=== PATIENT | female | born 1975 | race Caucasian/White ===

== ENCOUNTER 2019-06-10 18:13 | Emergency (ER) | payer OTHER ==
[2019-06-10] MEDS ORDERED: TORAdol 30 mg Injection IV ONE (18:41)
[2019-06-10] MEDS ORDERED: Pepcid 20 MG VIAL IV ONE ×2 (18:41→18:53)
[2019-06-10] MEDS ORDERED: Sodium Chloride 0.9% 1000 ML 1,000 ML IV SCH (18:45)
--- NOTE | 2019-06-10 18:47 | ERPHSYRPT ---
- History of Present Illness Historian: patient Exam Limitations: no limitations Patient Subjective Stated Complaint: pt here fo pain to right side of abd off and on for 2 weeks, but today has been consant, Triage Nursing Assessment: pt alert, resp easy, skin w/d/p. abd soft, no edema Timing/Duration: today Activities at Onset: none Quality: cramping, sharpness Abdominal Pain Onset Location: RUQ Pain Radiation: no radiation Severity of Pain-Max: severe Severity of Pain-Current: moderate Modifying Factors: Improves With: nothing Associated Symptoms: denies symptoms Previous symptoms: same symptoms as today Hx Tetanus, Diphtheria Vaccination/Date Given: No Hx Influenza Vaccination/Date Given: No Hx Pneumococcal Vaccination/Date Given: No Immunizations Up to Date: Yes <NAPOLEON CUI - Last Filed: 06/10/19 19:02> <IVON JETT - Last Filed: 06/10/19 23:28> - History of Present Illness Time Seen by Provider: 06/10/19 18:44 Physician History: Pt has been c/o RUQ abdominal pain for weeks, more severe since this morning, denies nausea, vomiting, diarrhea, urinary complaints, no radiating pain, fever , chills, chest pain, SOB, other complaints. She underwent cholecystectomy 12 years ago. (NAPOLEON CUI) Allergies/Adverse Reactions: cimetidine [From Tagamet] Adverse Reaction (Intermediate, Verified 06/10/19 18: 30) Vomiting Home Medications: Clonazepam 0.5 mg [Klonopin 0.5 MG] 0.5 mg PO UD 03/26/15 [History] Paroxetine HCl [Paxil] 30 mg PO DAILY 03/26/15 [History] - Review of Systems Constitutional: No Symptoms Ears, Nose, & Throat: No Symptoms Respiratory: No Symptoms Cardiac: No Symptoms Abdominal/Gastrointestinal: Abdominal Pain Genitourinary Symptoms: No Symptoms Musculoskeletal: No Symptoms Skin: No Symptoms Neurological: No Symptoms All Other Systems: Reviewed and Negative <NAPOLEON CUI - Last Filed: 06/10/19 19:02> - Past Medical History Neurological History: No Pertinent History ENT History: No Pertinent History Cardiac History: No Pertinent History Respiratory History: No Pertinent History Endocrine Medical History: No Pertinent History Musculoskeletal History: No Pertinent History GI Medical History: Gallbladder Disease History: No Pertinent History Psycho-Social History: Anxiety Female Reproductive Disorders: Endometriosis, Menstrual Problems - Past Surgical History Past Surgical History: Yes Neuro Surgical History: No Pertinent History Cardiac: No Pertinent History Respiratory: No Pertinent History Gastrointestinal: Cholecystectomy Genitourinary: No Pertinent History Musculoskeletal: No Pertinent History Female Surgical History: Section, Other Other Surgical History: ablasion - Social History Smoking Status: Former smoker How long have you smoked: 15 Exposure to second hand smoke: No Drug Use: none Patient Lives Alone: No - Female History Hx Last Menstrual Period: ablasion Hx Now: No <NAPOLEON CUI Filed: 06/10/19 19:02> - Physical Exam General Appearance: no apparent distress Eye Exam: eyes nml inspection Ears, Nose, Throat Exam: normal ENT inspection, moist mucous membranes Neck Exam: normal inspection, non-tender, supple, No JVD Respiratory Exam: normal breath sounds, lungs clear, airway intact, No chest tenderness Cardiovascular Exam: regular rate/rhythm, normal heart sounds, normal peripheral pulses, No murmur Gastrointestinal/Abdomen Exam: soft, normal bowel sounds, tenderness (RUQ, mod. severe), No distention, No mass, No guarding, No ecchymosis, No rebound Back Exam: normal inspection, No CVA tenderness Extremity Exam: normal inspection, No calf tenderness, No pedal edema Neurologic Exam: alert, oriented x 3, cooperative, normal mood/affect Skin Exam: normal color, warm, dry, No rash, No jaundice, No cyanosis, No diaphoresis Lymphatic Exam: No adenopathy SpO2 Interpretation: normal SpO2: 98 O2 Delivery: Room Air <NAPOLEON CUI - Filed: 06/10/19 19:02> - Nursing Vital Signs Nursing Vital Signs: Initial Vital Signs Temperature 97.8 F 06/10/19 18:25 Pulse Rate 82 06/10/19 18:25 Respiratory Rate 16 06/10/19 18:25 Blood Pressure 133/72 06/10/19 18:25 O2 Sat by Pulse Oximetry 98 06/10/19 18:25 Pain Scale Pain Intensity 2 - Course Nursing assessment & vital signs reviewed: Yes EKG Interpreted by Me: RATE (71/min), NORMAL AXIS, NORMAL INTERVALS, NORMAL QRS , Non-specific ST Changes <NAPOLEON CUI Last Filed: 06/10/19 19:02> - Radiology Exams Chest X-ray Interpretation: Interpreted by me, Negative (No acute changes) - CT Exams Abdomen/Pelvis CT Interpretation: Negative <IVON JETT - Last Filed: 06/10/19 23:28> Ordered Tests: Active Orders 24 hr Category Date Time Status EKG-ER Only STAT Care 06/10/19 18:41 Active IV Insertion STAT Care 06/10/19 18:41 Active ABDOMEN AND PELVIS W CONTRAST [CT] Stat Exams 06/10/19 18:42 Taken CHEST 1 VIEW (PORTABLE) Stat Exams 06/10/19 18:42 Taken AMYLASE Stat Lab 06/10/19 18:25 Completed CBC W DIFF Stat Lab 06/10/19 18:25 Completed CMP Stat Lab 06/10/19 18:25 Completed LIPASE Stat Lab 06/10/19 18:25 Completed TROPONIN Q3H Lab 06/10/19 18:25 Completed Medication Summary Discontinued Medications Generic Name Dose Route Start Last Admin Trade Name Freq PRN Reason Stop Dose Admin Famotidine 20 mg 06/10/19 18:41 06/10/19 18:58 Pepcid 20 Mg Vial IV 06/10/19 18:42 20 mg STAT ONE Administration Famotidine Confirm 06/10/19 18:53 Pepcid 20 Mg Vial Administered 06/10/19 18:54 Dose 20 mg IV .STK-MED ONE Sodium Chloride 1,000 mls @ 100 mls/hr 06/10/19 18:45 06/10/19 18:58 Sodium Chloride 0.9% 1000 Ml IV 07/10/19 18:44 100 mls/hr .Q10H VINICIO Administration Sodium Chloride Confirm 06/10/19 18:53 Sodium Chloride 0.9% 1000 Ml Administered 06/10/19 18:54 Dose 1,000 mls @ ud .ROUTE .STK-MED ONE Ketorolac Tromethamine 30 mg 06/10/19 18:41 06/10/19 18:58 Toradol 30 Mg Injection IV 06/10/19 18:42 30 mg STAT ONE Administration Ketorolac Tromethamine Confirm 06/10/19 18:53 Toradol 30 Mg Injection Administered 06/10/19 18:54 Dose 30 mg .ROUTE .STK-MED ONE Lab/Rad Data: Laboratory Result Diagrams 06/10/19 18:25 06/10/19 18:25 Laboratory Results 06/10/19 06/10/19 06/10/19 Range/Units 18:25 18:25 18:25 WBC 7.7 (4.0-10.5) K/mm3 RBC 4.49 (4.1-5.4) M/mm3 Hgb 13.8 (12.0-16.0) gm/dl Hct 39.8 (35-47) % MCV 88.6 (78-100) fl MCH 30.7 (26-32) pg MCHC 34.7 (32-36) g/dl RDW 12.4 (11.5-14.0) % Plt Count 258 (150-450) K/mm3 MPV 9.4 (6-9.5) fl Gran % 56.6 (36.0-66.0) % Eos # (Auto) 0.15 (0-0.5) Absolute Lymphs (auto) 2.53 (1.0-4.6) Absolute Monos (auto) 0.63 (0.0-1.3) Lymphocytes % 32.9 (24.0-44.0) % Monocytes % 8.2 (0.0-12.0) % Eosinophils % 1.9 (0.00-5.0) % Basophils % 0.4 (0.0-0.4) % Absolute Granulocytes 4.36 (1.4-6.9) Basophils # 0.03 (0-0.4) Sodium 140 (137-145) mmol/L Potassium 3.9 (3.5-5.1) mmol/L Chloride 104 (98-107) mmol/L Carbon Dioxide 27 (22-30) mmol/L Anion Gap 12.4 (5-15) MEQ/L BUN 13 (7-17) mg/dL Creatinine 0.59 (0.52-1.04) mg/dL Estimated GFR > 60.0 ML/MIN Glucose 91 (74-106) mg/dL Calcium 10.2 (8.4-10.2) mg/dL Total Bilirubin 0.50 (0.2-1.3) mg/dL AST 41 H (14-36) U/L ALT 64 H (0-35) U/L Alkaline Phosphatase 85 (38-126) U/L Troponin I < 0.012 (0.000-0.034) ng/mL Serum Total Protein 7.8 (6.3-8.2) g/dL Albumin 4.5 (3.5-5.0) g/dL Amylase 70 (30-110) U/L Lipase 215 (23-300) U/L <NAPOLEON CUI - Last Filed: 06/10/19 19:02> - Progress Progress: improved, re-examined Counseled pt/family regarding: lab results, need for follow-up, rad results <IVON JETT - Last Filed: 06/10/19 23:28> - Progress Progress Note: 06/10/19 19:02 Case was discussed with Dr Jett, he will follow up on her results., (NAPOLEON CUI) <NAPOLEON CUI - Last Filed: 06/10/19 19:02> - Departure Departure Disposition: Home Critical Care Time: No <IVON JETT - Last Filed: 06/10/19 23:28> - Departure Clinical Impression: Abdominal pain Qualifiers: Abdominal location: right upper quadrant Qualified Code(s): R10.11 - Right upper quadrant pain Condition: Stable Referrals: MARAL ARCE [Primary Care Provider] - Instructions: Acute Abdomen (Belly Pain), Adult (DC) Additional Instructions: Follow up with primary care; call office in the morning and let them know of your ER visit and how you are doing. Return to ER meanwhile if vomiting more than 3 times in an hour or running a fever 101.5 or above.
[2019-06-10] MEDS ORDERED: TORAdol 30 mg Injection ONE (18:53)
[2019-06-10] MEDS ORDERED: Sodium Chloride 0.9% 1000 ML 1,000 ML ONE (18:53)
[2019-06-10 18:55] LABS: BASOPHIL % 0.4 % (0.0-0.4); Basophil (Absolute #) 0.03 (0-0.4); Eosinophil % 1.9 % (0.00-5.0); Eosinophil (Absolute #) 0.15 (0-0.5); Granulocyte Absolute (ANC) 4.36 (1.4-6.9); Granulocytes % 56.6 % (36.0-66.0); Hematocrit 39.8 % (35-47); Hemoglobin 13.8 gm/dl (12.0-16.0); Lymphocyte (Absolute #) 2.53 (1.0-4.6); Lymphocytes % 32.9 % (24.0-44.0); Mean Cell Volume 88.6 fl (78-100); Mean Corpuscular Hemoglobin 30.7 pg (26-32); Mean Corpuscular Hgb Concent. 34.7 g/dl (32-36); Mean Platelet Volume 9.4 fl (6-9.5); Monocyte (Absolute #) 0.63 (0.0-1.3); Monocytes % 8.2 % (0.0-12.0); Platelet Count 258 K/mm3 (150-450); Red Blood Count 4.49 M/mm3 (4.1-5.4); Red Cell Distribution Width 12.4 % (11.5-14.0); White Blood Count 7.7 K/mm3 (4.0-10.5)
[2019-06-10 19:06] VITALS: PULSE 76
[2019-06-10 19:08] LABS: ALBUMIN 4.5 g/dL (3.5-5.0); ALKALINE PHOSPHATASE 85 U/L (38-126); AMYLASE 70 U/L (30-110); ANION GAP 12.4 MEQ/L (5-15); BLOOD UREA NITROGEN 13 mg/dL (7-17); CHLORIDE 104 mmol/L (98-107); Calcium 10.2 mg/dL (8.4-10.2); Carbon Dioxide 27 mmol/L (22-30); Creatinine 1 0.59 mg/dL (0.52-1.04); Glucose 91 mg/dL (74-106); LIPASE 215 U/L (23-300); Potassium 3.9 mmol/L (3.5-5.1); SGOT/AST 41 U/L (14-36); SGPT/ALT 64 U/L (0-35); SODIUM 140 mmol/L (137-145); Total Protein 7.8 g/dL (6.3-8.2)
[2019-06-10 21:01] VITALS: BP 148/79; O2SAT 98
--- NOTE | 2019-06-11 08:57 | XRAY ---
Indication: Right upper quadrant abdomen pain. Comparison: None Portable chest demonstrates normal heart, lungs, and bony thorax.
--- NOTE | 2019-06-11 08:57 | XRAY ---
Indication: Right upper quadrant pain for weeks. Multiple contiguous axial images obtained through the abdomen and pelvis using 80 cc Isovue 370 contrast only. Comparison: January 06, 2006. Lung bases are clear. Heart is not enlarged. Noncontrasted stomach and bowel loops appear nonobstructed. Normal appendix. Mild sigmoid diverticulosis without diverticulitis. Interval cholecystectomy. Diffuse fatty liver. No free fluid/air. Remaining liver, pancreas, spleen, adrenal glands, kidneys, ureters, bladder, uterus, and aorta appear unremarkable. No pathologic retroperitoneal lymphadenopathy. Osseous structures intact. Impression: 1. Diffuse fatty liver and sigmoid diverticulosis. 2. Remaining CT abdomen/pelvis with contrast exam is negative. Comment: Preliminary interpretation was made by [facility]. No discrepancy. CT DI 23.68
== END 2019-06-10 21:06 | disposition home or self-care (01) ==
LOC: ED 18:13
DX: R10.11 Right upper quadrant pain (principal)
CPT/HCPCS: 36000; 36415; 71045; 74177; 80053; 82150; 83690; 84484; 85025; 93005; 96360; 96361; 96374; 96375; 99284; J1885

== ENCOUNTER 2019-10-23 22:01 | Emergency (ER) | payer OTHER ==
--- NOTE | 2019-10-23 23:45 | ERPHSYRPT ---
- History of Present Illness Time Seen by Provider: 10/23/19 22:27 Source: patient, family Exam Limitations: no limitations Patient Subjective Stated Complaint: pt states that he was walking down the stairs in her home and lost her footing, fell on her r arm. Triage Nursing Assessment: pt rates painin arm as 5/10, states she cannot straighten her arm Physician History: S/P FALL GOING UP THE STEPS AT HER HOME NEG: LOC POS: RT ELBOW PAIN/ABRASION Occurred: just prior to arrival Method of Injury: fell Quality: constant, tightness Severity of Pain-Max: mild Severity of Pain-Current: mild Extremities Pain Location: elbow: right Modifying Factors: Improves With: movement Associated Symptoms: none Allergies/Adverse Reactions: cimetidine [From [employer]] Adverse Reaction (Intermediate, Verified 10/23/19 22: 19) Vomiting Home Medications: Clonazepam 0.5 mg [Klonopin 0.5 MG] 0.5 mg PO UD 03/26/15 [History] Paroxetine HCl [Paxil] 30 mg PO DAILY 03/26/15 [History] Hx Tetanus, Diphtheria Vaccination/Date Given: No Hx Influenza Vaccination/Date Given: No Hx Pneumococcal Vaccination/Date Given: No - Review of Systems Constitutional: No Symptoms Eyes: No Symptoms Ears, Nose, & Throat: No Symptoms Respiratory: No Symptoms Cardiac: No Symptoms Abdominal/Gastrointestinal: No Symptoms Genitourinary Symptoms: No Symptoms Musculoskeletal: Joint Pain (RT ELBOW) Skin: No Symptoms Neurological: No Symptoms Psychological: No Symptoms Endocrine: No Symptoms Hematologic/Lymphatic: No Symptoms Immunological/Allergic: No Symptoms All Other Systems: Reviewed and Negative - Past Medical History Neurological History: No Pertinent History ENT History: No Pertinent History Cardiac History: No Pertinent History Respiratory History: No Pertinent History Endocrine Medical History: No Pertinent History Musculoskeletal History: No Pertinent History GI Medical History: Gallbladder Disease History: No Pertinent History Psycho-Social History: Anxiety Female Reproductive Disorders: Endometriosis, Menstrual Problems - Past Surgical History Past Surgical History: Yes Neuro Surgical History: No Pertinent History Cardiac: No Pertinent History Respiratory: No Pertinent History Gastrointestinal: Cholecystectomy Genitourinary: No Pertinent History Musculoskeletal: No Pertinent History Female Surgical History: Section, Other Other Surgical History: ablasion - Social History Smoking Status: Former smoker How long have you smoked: 15 Exposure to second hand smoke: No Drug Use: none Patient Lives Alone: No - Female History Hx Last Menstrual Period: ablasion 4 years ago Hx Now: No - Nursing Vital Signs Nursing Vital Signs: Initial Vital Signs Temperature 98.1 F 10/23/19 22:05 Pain Scale Pain Intensity 5 - Physical Exam General Appearance: mild distress Eyes, Ears, Nose, Throat Exam: normal ENT inspection, TMs normal, pharynx normal , moist mucous membranes Neck Exam: normal inspection, non-tender, supple, full range of motion, No meningismus, No lymphadenopathy (R) Cardiovascular/Respiratory Exam: chest non-tender, normal breath sounds, regular rate/rhythm, heart sounds normal, no ecchymosis, no JVD, no M/R/G, no respiratory distress Abdominal Exam: non-tender, soft, no organomegaly, no hernia Back Exam: normal inspection, normal range of motion, CVA tenderness, No vertebral tenderness, No rash, No decreased range of motion Shoulder Exam: normal inspection Elbow/Forearm Exam: limited ROM, pain, soft tissue tenderness, swelling (MILD ) Wrist Exam: normal inspection, non-tender, no evidence of injury, normal ROM, No abrasions Hand Exam: normal inspection, non-tender, no evidence of injury, normal ROM Neuro/Tendon Exam: normal sensation, normal motor functions, normal tendon functions, responds to pain Mental Status Exam: alert, oriented x 3, cooperative Skin Exam: abrasion (RT ELBOW REGION--SUPERFGICIAL ) SpO2: 96 O2 Delivery: Room Air - Course Nursing assessment & vital signs reviewed: Yes Ordered Tests: Active Orders 24 hr Category Date Time Status ELBOW (MINIMUM 3 VIEWS) Stat Exams 10/23/19 23:09 Taken - Progress Progress: improved Progress Note: 10/23/19 23:51 FOLLOW UP WITH PCP NEXT WEK RETURN TO ER IF ANY CHANGES IN SYMPTOMS Counseled pt/family regarding: rad results - Departure Departure Disposition: Home Clinical Impression: Fall Qualifiers: Encounter type: initial encounter Qualified Code(s): W19.XXXA - Unspecified fall, initial encounter Contusion, elbow, with forearm Qualifiers: Encounter type: initial encounter Laterality: right Qualified Code(s): S50.11XA - Contusion of right forearm, initial encounter Condition: Stable Critical Care Time: No Referrals: MARAL ARCE [Primary Care Provider] - Additional Instructions: FOLLOW UP WITH PCP NEXT WEEK RETURN TO ER IF ANY CHANGES IN SYMPTOMS
[2019-10-23] MEDS ORDERED: TORAdol 30 mg Injection IM ONE (23:54)
[2019-10-24 00:09] VITALS: BP 133/83; PULSE 88; O2SAT 97
--- NOTE | 2019-10-24 10:12 | XRAY ---
Exam: 3 view right elbow series from 10/23/2019. Comparison: None. Indication: Right elbow pain. Findings: AP, oblique, and lateral radiographs of the right elbow were obtained. No acute fracture, dislocation, or joint effusion is seen. There is no elevation of the anterior fat pad or evidence of a posterior fat pad. The radial head and neck appear intact. The right elbow joint space appears unremarkable. No abnormal periarticular soft tissue calcifications are seen. No radiopaque soft tissue foreign body is seen. No other focal bone lesion is seen. Impression: 1. No significant right elbow abnormality detected.
== END 2019-10-24 00:09 | disposition home or self-care (01) ==
LOC: ED 22:01
DX: S50.11XA Contusion of right forearm, initial encounter (principal); M25.521 Pain in right elbow; S50.311A Abrasion of right elbow, initial encounter; W10.9XXA Fall (on) (from) unspecified stairs and steps, initial encounter
CPT/HCPCS: 73080; 99283

== ENCOUNTER 2021-07-16 12:06 | Inpatient (IN) | payer BC, OTHER ==
[2021-07-16] MEDS ORDERED: Sodium Chloride 0.9% 1000 ML 1,000 ML IV STA (12:35)
[2021-07-16] MEDS ORDERED: Hydromorphone 1 mg/ml Injection IV ONE ×2 (12:35→14:37)
[2021-07-16] MEDS ORDERED: Hydromorphone 1 mg/ml Injection ONE ×2 (12:40→14:47)
[2021-07-16] MEDS ORDERED: Sodium Chloride 0.9% 1000 ML 1,000 ML ONE (12:40)
[2021-07-16 12:52] LABS: Absolute Neutrophil Ct (ANC) 14.48 (1.4-6.9); BASOPHIL % 0.1 % (0.0-0.4); Basophil (Absolute #) 0.02 (0-0.4); Eosinophil % 0.1 % (0.00-5.0); Eosinophil (Absolute #) 0.02 (0-0.5); Hematocrit 42.6 % (35-47); Hemoglobin 14.5 gm/dl (12.0-16.0); Lymphocyte (Absolute #) 2.16 (1.0-4.6); Lymphocytes % 11.9 % (24.0-44.0); Mean Cell Volume 88.6 fl (78-100); Mean Corpuscular Hemoglobin 30.1 pg (26-32); Mean Platelet Volume 9.4 fl (7.5-11.0); Monocytes % 7.7 % (0.0-12.0); Neutrophil % 80.2 % (36.0-66.0); Platelet Count 289 K/mm3 (150-450); Red Blood Count 4.81 M/mm3 (4.1-5.4); Red Cell Distribution Width 12.5 % (11.5-14.0); White Blood Count 18.1 K/mm3 (4.0-10.5)
--- NOTE | 2021-07-16 12:55 | ERPHSYRPT ---
- History of Present Illness Time Seen by Provider: 07/16/21 12:25 Historian: patient Exam Limitations: no limitations Patient Subjective Stated Complaint: Pt states that she began having kiko lower abdominal pain since yesterday, unable to get comfortable Triage Nursing Assessment: Pt brought self to the ER, tachycardic, rates pain 8/10, denies flank pain, has had 2 bowel movements this AM with no difficulties, pain meds last night, pulses normal, frequent urination, skin n/w/d Physician History: Patient is a 46-year-old female who presents with a complaint of lower abdominal pain which started yesterday grew much worse through the night. She does have a history of recurrent ovarian cyst and endometriosis which had been much better as far as pain goes since an ablation approximately 7 years ago. This episode started last night the pain is in the lower abdomen and back she does have some chills and sweats but no documented fever she has had some nausea but no fever no vomiting no diarrhea. She has frequency of urination but no urgency no dysuria etc. previous abdominal surgeries include several laparoscopic procedures x2 ablation 7 years ago as mentioned above and cholecystectomy. Timing/Duration: yesterday Activities at Onset: none Quality: cramping, stabbing, throbbing Abdominal Pain Onset Location: suprapubic Pain Radiation: no radiation Severity of Pain-Max: severe Severity of Pain-Current: severe Modifying Factors: Improves With: movement Associated Symptoms: diaphoresis, fever/chills, nausea Previous symptoms: same symptoms as today Allergies/Adverse Reactions: cimetidine [From [facility]] Adverse Reaction (Intermediate, Verified 07/16/21 12:29) Vomiting Home Medications: Clonazepam 0.5 mg [Klonopin 0.5 MG] 0.5 mg PO UD PRN 03/26/15 [History] PARoxetine HCl [Paxil] 30 mg PO DAILY 03/26/15 [History] Metformin HCl 500 mg [Glucophage 500 MG] 500 mg PO BIDWM 07/16/21 [History] Hx Tetanus, Diphtheria Vaccination/Date Given: No Hx Influenza Vaccination/Date Given: No Hx Pneumococcal Vaccination/Date Given: No Travel Risk - International Travel Have you traveled outside of the country in past 3 weeks: No - Coronavirus Screening Are you exhibiting any of the following symptoms?: No Close contact with a COVID-19 positive Pt in past 14-21 Days: No - Vaccine Status Have you recieved a Covid-19 vaccination: No - Review of Systems Constitutional: Chills, Night Sweats, No Fever Eyes: No Symptoms Ears, Nose, & Throat: No Symptoms Respiratory: No Cough, No Dyspnea Cardiac: No Chest Pain, No Edema, No Syncope Abdominal/Gastrointestinal: Abdominal Pain, Nausea, No Vomiting, No Diarrhea Genitourinary Symptoms: No Dysuria Musculoskeletal: No Back Pain, No Neck Pain Skin: No Rash Neurological: No Dizziness, No Focal Weakness, No Sensory Changes Psychological: No Symptoms Endocrine: No Symptoms All Other Systems: Reviewed and Negative - Past Medical History Pertinent Past Medical History: Yes Neurological History: No Pertinent History ENT History: No Pertinent History Cardiac History: No Pertinent History Respiratory History: No Pertinent History Endocrine Medical History: No Pertinent History Musculoskeletal History: No Pertinent History GI Medical History: Gallbladder Disease History: No Pertinent History Psycho-Social History: Anxiety Female Reproductive Disorders: Endometriosis, Menstrual Problems - Past Surgical History Past Surgical History: Yes Neuro Surgical History: No Pertinent History Cardiac: No Pertinent History Respiratory: No Pertinent History Gastrointestinal: Cholecystectomy Genitourinary: No Pertinent History Musculoskeletal: No Pertinent History Female Surgical History: Section, Other Other Surgical History: ablasion - Social History Smoking Status: Former smoker How long have you smoked: 15 Exposure to second hand smoke: No Drug Use: none Patient Lives Alone: No - Female History Hx Now: No (ablasion) - Nursing Vital Signs Nursing Vital Signs: Initial Vital Signs Temperature 98.9 F 07/16/21 12:13 Pulse Rate 106 H 07/16/21 12:13 Blood Pressure 139/89 07/16/21 12:13 O2 Sat by Pulse Oximetry 96 07/16/21 12:13 Pain Scale Pain Intensity 8 - Physical Exam General Appearance: no apparent distress, mild distress, alert Eye Exam: PERRL/EOMI, eyes nml inspection Ears, Nose, Throat Exam: normal ENT inspection, pharynx normal, moist mucous membranes Neck Exam: normal inspection, non-tender, supple, full range of motion Respiratory Exam: normal breath sounds, lungs clear, No respiratory distress Cardiovascular Exam: regular rate/rhythm, normal heart sounds Gastrointestinal/Abdomen Exam: normal bowel sounds, tenderness, guarding, rebound (Tenderness guarding and rebound in the lower quadrants), No mass Pelvic Exam: not done Rectal Exam: deferred Back Exam: normal inspection, normal range of motion, No CVA tenderness, No vertebral tenderness Extremity Exam: normal inspection, normal range of motion, pelvis stable Neurologic Exam: alert, oriented x 3, cooperative, normal mood/affect, nml cerebellar function, sensation nml, No motor deficits Skin Exam: normal color, warm, dry SpO2 Interpretation: normal SpO2: 96 O2 Delivery: Room Air - Course Nursing assessment & vital signs reviewed: Yes - CT Exams Abdomen/Pelvis CT Interpretation: Tele-radiologist Report (Summary of the CT scan was of mild acute diverticulitis at the junction of the descending and sigmoid colon and some small foci of extraluminal air consistent with a contained diverticular perforation.) Ordered Tests: Active Orders 24 hr Category Date Time Status IV Insertion STAT Care 07/16/21 12:35 Active ABDOMEN AND PELVIS W CONTRAST [CT] Stat Exams 07/16/21 12:35 Taken AMYLASE Stat Lab 07/16/21 12:20 Completed CBC W DIFF Stat Lab 07/16/21 12:20 Completed CMP Stat Lab 07/16/21 12:20 Completed LIPASE Stat Lab 07/16/21 12:20 Completed Lactic Acid Stat Lab 07/16/21 12:45 Completed UA W/RFX UR CULTURE Stat Lab 07/16/21 12:39 Completed Medication Summary Generic Name Dose Route Start Last Admin Trade Name Freq PRN Reason Stop Dose Admin Hydromorphone HCl 1 mg 07/16/21 14:37 Hydromorphone 1 Mg/Ml Injection IV 07/16/21 14:38 STAT ONE Ondansetron HCl 4 mg 07/16/21 14:38 Zofran 4 Mg/2 Ml Vial IV 07/16/21 14:39 STAT ONE Discontinued Medications Generic Name Dose Route Start Last Admin Trade Name Freq PRN Reason Stop Dose Admin Hydromorphone HCl 1 mg 07/16/21 12:35 07/16/21 12:41 Hydromorphone 1 Mg/Ml Injection IV 07/16/21 12:36 1 mg STAT ONE Administration Hydromorphone HCl Confirm 07/16/21 12:40 Hydromorphone 1 Mg/Ml Injection Administered 07/16/21 12:41 Dose 1 mg .ROUTE .STK-MED ONE Sodium Chloride 1,000 mls @ 999 mls/hr 07/16/21 12:35 07/16/21 14:00 Sodium Chloride 0.9% 1000 Ml IV 07/16/21 13:35 Infused .Q1H1M STA Infusion Sodium Chloride Confirm 07/16/21 12:40 Sodium Chloride 0.9% 1000 Ml Administered 07/16/21 12:41 Dose 1,000 mls @ ud .ROUTE .STK-MED ONE Lab/Rad Data: Laboratory Result Diagrams 07/16/21 12:20 07/16/21 12:20 Laboratory Results 07/16/21 07/16/21 07/16/21 Range/Units 12:45 12:39 12:20 WBC (4.0-10.5) K/mm3 RBC (4.1-5.4) M/mm3 Hgb (12.0-16.0) gm/dl Hct (35-47) % MCV (78-100) fl MCH (26-32) pg MCHC (32-36) g/dl RDW (11.5-14.0) % Plt Count (150-450) K/mm3 MPV (7.5-11.0) fl Gran % (36.0-66.0) % Eos # (Auto) (0-0.5) Absolute Lymphs (auto) (1.0-4.6) Absolute Monos (auto) (0.0-1.3) Lymphocytes % (24.0-44.0) % Monocytes % (0.0-12.0) % Eosinophils % (0.00-5.0) % Basophils % (0.0-0.4) % Absolute Granulocytes (1.4-6.9) Basophils # (0-0.4) Sodium 135 L (137-145) mmol/L Potassium 4.0 (3.5-5.1) mmol/L Chloride 98 (98-107) mmol/L Carbon Dioxide 25 (22-30) mmol/L Anion Gap 16.3 H (5-15) MEQ/L BUN 9 (7-17) mg/dL Creatinine 0.55 (0.52-1.04) mg/dL Estimated GFR > 60.0 ML/MIN Glucose 160 H (74-106) mg/dL Lactic Acid 1.3 (0.4-2.0) Calcium 9.7 (8.4-10.2) mg/dL Total Bilirubin 0.90 (0.2-1.3) mg/dL AST 29 (14-36) U/L ALT 57 H (0-35) U/L Alkaline Phosphatase 94 (38-126) U/L Serum Total Protein 8.2 (6.3-8.2) g/dL Albumin 4.9 (3.5-5.0) g/dL Amylase 55 (30-110) U/L Lipase 116 (23-300) U/L Urine Color YELLOW (YELLOW) Urine Appearance CLEAR (CLEAR) Urine pH 7.0 (5-6) Ur Specific [place] 1.012 (1.005-1.025) Urine Protein NEGATIVE (Negative) Urine Ketones NEGATIVE (NEGATIVE) Urine Blood NEGATIVE (0-5) Ari/ul Urine Nitrite NEGATIVE (NEGATIVE) Urine Bilirubin NEGATIVE (NEGATIVE) Urine Urobilinogen 2 (0-1) mg/dL Ur Leukocyte Esterase NEGATIVE (NEGATIVE) Urine WBC (Auto) 0-2 (0-5) /HPF Urine RBC (Auto) NONE SEEN (0-2) /HPF U Epithel Cells (Auto) RARE (FEW) /HPF Urine Bacteria (Auto) RARE (NEGATIVE) /HPF Urine Mucus (Auto) SLIGHT (NEGATIVE) /HPF Urine Culture Reflexed NO (NO) Urine Glucose NEGATIVE (NEGATIVE) mg/dL 07/16/21 Range/Units 12:20 WBC 18.1 H (4.0-10.5) K/mm3 RBC 4.81 (4.1-5.4) M/mm3 Hgb 14.5 (12.0-16.0) gm/dl Hct 42.6 (35-47) % MCV 88.6 (78-100) fl MCH 30.1 (26-32) pg MCHC 34.0 (32-36) g/dl RDW 12.5 (11.5-14.0) % Plt Count 289 (150-450) K/mm3 MPV 9.4 (7.5-11.0) fl Gran % 80.2 H (36.0-66.0) % Eos # (Auto) 0.02 (0-0.5) Absolute Lymphs (auto) 2.16 (1.0-4.6) Absolute Monos (auto) 1.40 H (0.0-1.3) Lymphocytes % 11.9 L (24.0-44.0) % Monocytes % 7.7 (0.0-12.0) % Eosinophils % 0.1 (0.00-5.0) % Basophils % 0.1 (0.0-0.4) % Absolute Granulocytes 14.48 H (1.4-6.9) Basophils # 0.02 (0-0.4) Sodium (137-145) mmol/L Potassium (3.5-5.1) mmol/L Chloride (98-107) mmol/L Carbon Dioxide (22-30) mmol/L Anion Gap (5-15) MEQ/L BUN (7-17) mg/dL Creatinine (0.52-1.04) mg/dL Estimated GFR ML/MIN Glucose (74-106) mg/dL Lactic Acid (0.4-2.0) Calcium (8.4-10.2) mg/dL Total Bilirubin (0.2-1.3) mg/dL AST (14-36) U/L ALT (0-35) U/L Alkaline Phosphatase (38-126) U/L Serum Total Protein (6.3-8.2) g/dL Albumin (3.5-5.0) g/dL Amylase (30-110) U/L Lipase (23-300) U/L Urine Color (YELLOW) Urine Appearance (CLEAR) Urine pH (5-6) Ur Specific [place] (1.005-1.025) Urine Protein (Negative) Urine Ketones (NEGATIVE) Urine Blood (0-5) Ari/ul Urine Nitrite (NEGATIVE) Urine Bilirubin (NEGATIVE) Urine Urobilinogen (0-1) mg/dL Ur Leukocyte Esterase (NEGATIVE) Urine WBC (Auto) (0-5) /HPF Urine RBC (Auto) (0-2) /HPF U Epithel Cells (Auto) (FEW) /HPF Urine Bacteria (Auto) (NEGATIVE) /HPF Urine Mucus (Auto) (NEGATIVE) /HPF Urine Culture Reflexed (NO) Urine Glucose (NEGATIVE) mg/dL - Progress Discussed with : Shira Will see patient in: hospital (observation) Counseled pt/family regarding: lab results, diagnosis - Departure Departure Disposition: Observation Clinical Impression: Diverticulitis of colon with perforation Condition: Stable Critical Care Time: No Referrals: MARAL ARCE [Primary Care Provider] -
[2021-07-16 13:01] LABS: ALBUMIN 4.9 g/dL (3.5-5.0); ALKALINE PHOSPHATASE 94 U/L (38-126); AMYLASE 55 U/L (30-110); ANION GAP 16.3 MEQ/L (5-15); BLOOD UREA NITROGEN 9 mg/dL (7-17); CHLORIDE 98 mmol/L (98-107); Calcium 9.7 mg/dL (8.4-10.2); Carbon Dioxide 25 mmol/L (22-30); Creatinine 1 0.55 mg/dL (0.52-1.04); EST GLOMERULAR FILTRATION RATE > 60.0 ML/MIN; Glucose 160 mg/dL (74-106); LIPASE 116 U/L (23-300); SGOT/AST 29 U/L (14-36); SGPT/ALT 57 U/L (0-35); SODIUM 135 mmol/L (137-145); Total Protein 8.2 g/dL (6.3-8.2)
[2021-07-16 13:08] LABS: Appearance CLEAR (CLEAR); Bacteria RARE /HPF (NEGATIVE); Bilirubin NEGATIVE (NEGATIVE); Blood NEGATIVE Ery/ul (0-5); Epithelial Cells RARE /HPF (FEW); Glucose NEGATIVE (NEGATIVE); Ketones NEGATIVE (NEGATIVE); Leukocyte Esterase NEGATIVE (NEGATIVE); Mucus SLIGHT /HPF (NEGATIVE); Nitrite NEGATIVE (NEGATIVE); Protein,Urine Dip NEGATIVE (Negative); Specific Gravity 1.012 (1.005-1.025); Urobilinogen 2 mg/dL (0-1); WBC 0-2 /HPF (0-5)
[2021-07-16 13:11] LABS: RBC NONE SEEN /HPF (0-2)
[2021-07-16] MEDS ORDERED: Zofran 4 MG/2 ML VIAL IV ONE (14:38)
[2021-07-16] MEDS ORDERED: Zosyn 3.375 GM Vial 3.375 GM in Sodium Chloride 100ML MINI-BAG PLUS 100 ML IV ONE (14:43)
[2021-07-16] MEDS ORDERED: FLAGYL 500 MG IVPB 500 MG/100 ML BAG IV STA (14:44)
[2021-07-16] MEDS ORDERED: Zofran 4 MG/2 ML VIAL ONE (14:47)
[2021-07-16] MEDS ORDERED: Zosyn 3.375 GM Vial IV ONE ×2 (14:47→21:24)
[2021-07-16] MEDS ORDERED: Sodium Chloride 100ML MINI-BAG PLUS 100 ML IV ONE ×2 (14:48→21:25)
[2021-07-16] MEDS ORDERED: FLAGYL 500 MG IVPB 500 MG/100 ML BAG IV ONE (14:48)
[2021-07-16] MEDS: Sodium Chloride 0.9% 1000 ML 1,000 ML IV SCH (16:29)
--- NOTE | 2021-07-16 18:24 | XRAY ---
Indication: Abdomen/pelvic pain. Nausea. Multiple contiguous axial images obtained through the abdomen and pelvis using 80 cc Isovue 370 contrast. Comparison: June 10, 2019. Lung bases are again clear. Heart not enlarged. Noncontrasted stomach and bowel loops are nonobstructed. Normal appendix. Mild scattered descending and sigmoid colonic diverticulosis. Mid and proximal sigmoid demonstrates new mild wall thickening with pericolonic stranding favoring diverticulitis. No free fluid/air. Again diffuse fatty liver and cholecystectomy. Remaining liver, pancreas, spleen, adrenal glands, kidneys, ureters, bladder, uterus, and aorta are unremarkable. No pathologic retroperitoneal lymphadenopathy. Osseous structures intact. Impression: 1. New sigmoid diverticulitis. No complications. 2. Again fatty liver. Comment: Preliminary interpretation made by [facility]. No critical discrepancy.
[2021-07-16] MEDS: FLAGYL 500 MG IVPB 500 MG/100 ML BAG IV SCH ×2 (19:40→21:33)
[2021-07-16] MEDS: Zosyn 3.375 GM Vial 3.375 GM in Sodium Chloride 100ML MINI-BAG PLUS 100 ML IV SCH ×2 (19:41→23:00)
[2021-07-16] MEDS: Hydromorphone 1 mg/ml Injection IV PRN (19:52)
[2021-07-17] MEDS ORDERED: Sodium Chloride 100ML MINI-BAG PLUS 100 ML IV ONE (03:34)
[2021-07-17] MEDS ORDERED: Zosyn 3.375 GM Vial IV ONE (03:34)
[2021-07-17] MEDS ORDERED: Sodium Chloride 0.9% 1000 ML 1,000 ML ONE (04:17)
[2021-07-17] MEDS: Sodium Chloride 0.9% 1000 ML 1,000 ML IV SCH ×2 (04:20→18:26)
[2021-07-17] MEDS: FLAGYL 500 MG IVPB 500 MG/100 ML BAG IV SCH ×4 (04:20→23:24)
[2021-07-17] MEDS: Zosyn 3.375 GM Vial 3.375 GM in Sodium Chloride 100ML MINI-BAG PLUS 100 ML IV SCH ×3 (05:52→18:58)
[2021-07-17 06:35] LABS: Absolute Neutrophil Ct (ANC) 9.83 (1.4-6.9); BASOPHIL % 0.2 % (0.0-0.4); Basophil (Absolute #) 0.02 (0-0.4); Eosinophil % 0.1 % (0.00-5.0); Eosinophil (Absolute #) 0.01 (0-0.5); Hematocrit 38.4 % (35-47); Hemoglobin 12.7 gm/dl (12.0-16.0); Lymphocyte (Absolute #) 1.39 (1.0-4.6); Lymphocytes % 11.4 % (24.0-44.0); Mean Cell Volume 91.2 fl (78-100); Mean Corpuscular Hemoglobin 30.2 pg (26-32); Mean Corpuscular Hgb Concent. 33.1 g/dl (32-36); Mean Platelet Volume 9.1 fl (7.5-11.0); Monocyte (Absolute #) 0.93 (0.0-1.3); Monocytes % 7.6 % (0.0-12.0); Neutrophil % 80.7 % (36.0-66.0); Platelet Count 210 K/mm3 (150-450); Red Blood Count 4.21 M/mm3 (4.1-5.4); Red Cell Distribution Width 12.5 % (11.5-14.0); White Blood Count 12.2 K/mm3 (4.0-10.5)
[2021-07-17 06:54] LABS: ANION GAP 11.1 MEQ/L (5-15); BLOOD UREA NITROGEN 7 mg/dL (7-17); CHLORIDE 102 mmol/L (98-107); Calcium 8.8 mg/dL (8.4-10.2); Carbon Dioxide 26 mmol/L (22-30); Creatinine 1 0.59 mg/dL (0.52-1.04); EST GLOMERULAR FILTRATION RATE > 60.0 ML/MIN; Glucose 157 mg/dL (74-106); Potassium 3.8 mmol/L (3.5-5.1); SODIUM 135 mmol/L (137-145)
[2021-07-17] MEDS ORDERED: clonazePAM PO PRN (07:12)
[2021-07-17] MEDS: Hydromorphone 1 mg/ml Injection IV PRN ×3 (08:35→20:11)
[2021-07-17] MEDS: HOLD METFORMIN PRODUCTS FOR 48 HOURS MC SCH ×3 (11:58→23:33)
[2021-07-17] MEDS: Paxil 20 MG PO SCH (11:58)
[2021-07-17] MEDS ORDERED: PAROXETINE HCL 30 MG PO SCH (12:00)
--- NOTE | 2021-07-17 13:19 | PCM.HP ---
History of Present Illness - Chief Complaint Chief Complaint: Diverticulitis with perforation History of Present Illness: is a 46 year old female followed by Brenda Schaeffer NP,presented to ER with severe low abd pain. Has Hx Ovarian cysts/.endometriosis ,improved after ablation(remote). CT abd/pelvis showed ruptured diverticulitis that is contained .Dr Álvaro Topete consulted and is following. She is tolerating clear liquid diet and pain level down to 1-2 from 8-10 in ER on current pain meds.She was started on Zosyn and Flagyl in ER - Review of Systems Constitutional: Chills, Night Sweats Eyes: No Symptoms Ears, Nose, & Throat: No Symptoms Respiratory: No Symptoms Abdominal/Gastrointestinal: Abdominal Pain, Nausea Genitourinary Symptoms: Frequency Musculoskeletal: No Symptoms Skin: No Symptoms Psychological: No Symptoms Endocrine: No Symptoms Hematologic/Lymphatic: No Symptoms Medications & Allergies Home Medications: Home Medication List Clonazepam 0.5 mg [Klonopin 0.5 MG] 0.5 mg PO DAILY PRN PRN 03/26/15 [History Confirmed 07/16/21] PARoxetine HCl [Paxil] 30 mg PO LUNCH 03/26/15 [History Confirmed 07/16/21] Metformin HCl 500 mg [Glucophage 500 MG] 500 mg PO BIDWM 07/16/21 [History Confirmed 07/16/21] Allergies/Adverse Reactions: Allergies Allergy/AdvReac Type Severity Reaction Status Date / Time cimetidine [From Tagamet] AdvReac Intermediate Vomiting Verified 07/16/21 12:29 acetaminophen [From Tylenol] AdvReac Verified 07/16/21 17:38 - Past Medical History Past Medical History: Yes Neurological History: No Pertinent History ENT History: No Pertinent History Cardiac History: No Pertinent History Respiratory History: Pneumonia Endocrine Medical History: Diabetes Type II Musculoskelatal History: No Pertinent History GI Medical History: Diverticulitis, Diverticulosis, Gallbladder Disease, Other History: No Pertinent History Pyscho-Social History: Anxiety Reproductive Disorders: Endometriosis, Menstrual Problems Comment: Fatty liver - Female History Are you now?: No (ablasion) - Past Surgical History Past Surgical History: Yes Neuro Surgical History: No Pertinent History Cardiac History: No Pertinent History Respiratory Surgery: No Pertinent History GI Surgical History: Cholecystectomy Genitourinary Surgical Hx: No Pertinent History Musculskeletal Surgical Hx: No Pertinent History Female Surgical History: Section, Other Other Surgical History: ablasion; several laparoscopic surgeries for endometriosis and ovarian cysts - Social History Smoking Status: Former smoker How long have you smoked: 15 Exposure to second hand smoke: No Alcohol: None Drug Use: none - Physical Exam Vital Signs: Vital Signs - 24 hr Temp Pulse Resp BP Pulse Ox 07/17/21 11:52 97.1 F 84 18 117/55 95 07/17/21 08:00 98.7 F 91 H 20 107/53 96 07/17/21 04:21 98.4 F 86 20 104/47 96 07/16/21 23:23 98.5 F 92 H 18 109/51 97 07/16/21 20:00 99.2 F 95 H 20 113/52 96 07/16/21 17:57 100.1 F 94 H 16 104/53 95 07/16/21 17:52 100.1 F 94 H 18 104/53 95 07/16/21 17:50 100.1 F 94 H 18 104/53 95 07/16/21 14:42 96 07/16/21 14:03 96 H 119/55 96 General Appearance: no apparent distress (is groggy just had pain med and is comfortable) Neurologic Exam: oriented x 3, cooperative Eye Exam: eyes nml inspection Ears, Nose, Throat Exam: normal ENT inspection Neck Exam: normal inspection Respiratory Exam: normal breath sounds Cardiovascular Exam: regular rate/rhythm Gastrointestinal/Abdomen Exam: soft, tenderness (across low abd with guarding LLQ) Pelvic Exam: not done Rectal Exam: not done Back Exam: normal inspection Extremity Exam: normal inspection Skin Exam: normal color, warm, dry Results - Labs Lab/Micro Results: Lab Results-Last 24 Hours 07/16/21 07/17/21 07/17/21 Range/Units 15:10 05:50 05:50 WBC 12.2 H (4.0-10.5) K/mm3 RBC 4.21 (4.1-5.4) M/mm3 Hgb 12.7 (12.0-16.0) gm/dl Hct 38.4 (35-47) % MCV 91.2 (78-100) fl MCH 30.2 (26-32) pg MCHC 33.1 (32-36) g/dl RDW 12.5 (11.5-14.0) % Plt Count 210 (150-450) K/mm3 MPV 9.1 (7.5-11.0) fl Gran % 80.7 H (36.0-66.0) % Eos # (Auto) 0.01 (0-0.5) Absolute Lymphs (auto) 1.39 (1.0-4.6) Absolute Monos (auto) 0.93 (0.0-1.3) Lymphocytes % 11.4 L (24.0-44.0) % Monocytes % 7.6 (0.0-12.0) % Eosinophils % 0.1 (0.00-5.0) % Basophils % 0.2 (0.0-0.4) % Absolute Granulocytes 9.83 H (1.4-6.9) Basophils # 0.02 (0-0.4) Sodium 135 L (137-145) mmol/L Potassium 3.8 (3.5-5.1) mmol/L Chloride 102 (98-107) mmol/L Carbon Dioxide 26 (22-30) mmol/L Anion Gap 11.1 (5-15) MEQ/L BUN 7 (7-17) mg/dL Creatinine 0.59 (0.52-1.04) mg/dL Estimated GFR > 60.0 ML/MIN Glucose 157 H (74-106) mg/dL POC Glucometer (74 to 106) mg/dL Lactic Acid (0.4-2.0) Calcium 8.8 (8.4-10.2) mg/dL SARS-CoV-2 (PCR) NEGATIVE (NEGATIVE) 07/17/21 07/17/21 07/17/21 Range/Units 05:55 07:29 12:02 WBC (4.0-10.5) K/mm3 RBC (4.1-5.4) M/mm3 Hgb (12.0-16.0) gm/dl Hct (35-47) % MCV (78-100) fl MCH (26-32) pg MCHC (32-36) g/dl RDW (11.5-14.0) % Plt Count (150-450) K/mm3 MPV (7.5-11.0) fl Gran % (36.0-66.0) % Eos # (Auto) (0-0.5) Absolute Lymphs (auto) (1.0-4.6) Absolute Monos (auto) (0.0-1.3) Lymphocytes % (24.0-44.0) % Monocytes % (0.0-12.0) % Eosinophils % (0.00-5.0) % Basophils % (0.0-0.4) % Absolute Granulocytes (1.4-6.9) Basophils # (0-0.4) Sodium (137-145) mmol/L Potassium (3.5-5.1) mmol/L Chloride (98-107) mmol/L Carbon Dioxide (22-30) mmol/L Anion Gap (5-15) MEQ/L BUN (7-17) mg/dL Creatinine (0.52-1.04) mg/dL Estimated GFR ML/MIN Glucose (74-106) mg/dL POC Glucometer 145 H 116 H (74 to 106) mg/dL Lactic Acid 0.5 (0.4-2.0) Calcium (8.4-10.2) mg/dL SARS-CoV-2 (PCR) (NEGATIVE) Accuchecks Date 07/17/21 Date 07/17/21 Time 11:45 Time 07:29 - Radiology Impressions Radiology Exams & Impressions: Radiology Procedures Category Date Time Status ABDOMEN AND PELVIS W CONTRAST [CT] Stat Exams 07/16/21 12:35 Completed Assessment/Plan (1) Diverticulitis of colon with perforation Current Visit: Yes Status: Acute Assessment & Plan: stable,WBC improved on Zosyn and Flagyl. Gen Surgery is following. Code(s): K57.20 - DVTRCLI OF LG INT W PERFORATION AND ABSCESS W/O BLEEDING (2) Prediabetes Current Visit: Yes Status: Chronic Assessment & Plan: monitor Code(s): R73.03 - PREDIABETES (3) Anxiety Current Visit: Yes Status: Chronic Assessment & Plan: continue home meds Code(s): F41.9 - ANXIETY DISORDER, UNSPECIFIED
[2021-07-17] MEDS: Zofran 4 MG/2 ML VIAL IV PRN (17:23)
[2021-07-18] MEDS: Zosyn 3.375 GM Vial 3.375 GM in Sodium Chloride 100ML MINI-BAG PLUS 100 ML IV SCH ×4 (00:29→18:13)
[2021-07-18] MEDS: Sodium Chloride 0.9% 1000 ML 1,000 ML IV SCH ×3 (05:13→18:53)
[2021-07-18] MEDS: FLAGYL 500 MG IVPB 500 MG/100 ML BAG IV SCH ×3 (05:14→18:53)
[2021-07-18 06:38] LABS: Absolute Neutrophil Ct (ANC) 8.51 (1.4-6.9); BASOPHIL % 0.2 % (0.0-0.4); Basophil (Absolute #) 0.02 (0-0.4); Eosinophil % 0.4 % (0.00-5.0); Eosinophil (Absolute #) 0.04 (0-0.5); Hematocrit 37.1 % (35-47); Hemoglobin 12.2 gm/dl (12.0-16.0); Lymphocyte (Absolute #) 1.32 (1.0-4.6); Lymphocytes % 12.4 % (24.0-44.0); Mean Cell Volume 90.9 fl (78-100); Mean Corpuscular Hemoglobin 29.9 pg (26-32); Mean Corpuscular Hgb Concent. 32.9 g/dl (32-36); Mean Platelet Volume 9.4 fl (7.5-11.0); Monocyte (Absolute #) 0.74 (0.0-1.3); Platelet Count 208 K/mm3 (150-450); Red Blood Count 4.08 M/mm3 (4.1-5.4); Red Cell Distribution Width 12.4 % (11.5-14.0); White Blood Count 10.6 K/mm3 (4.0-10.5)
[2021-07-18 06:54] LABS: ALBUMIN 3.8 g/dL (3.5-5.0); ALKALINE PHOSPHATASE 105 U/L (38-126); ANION GAP 11.8 MEQ/L (5-15); BLOOD UREA NITROGEN 6 mg/dL (7-17); CHLORIDE 102 mmol/L (98-107); Calcium 8.6 mg/dL (8.4-10.2); Carbon Dioxide 26 mmol/L (22-30); Creatinine 1 0.54 mg/dL (0.52-1.04); EST GLOMERULAR FILTRATION RATE > 60.0 ML/MIN; Glucose 145 mg/dL (74-106); Potassium 3.8 mmol/L (3.5-5.1); SGOT/AST 124 U/L (14-36); SGPT/ALT 143 U/L (0-35); SODIUM 136 mmol/L (137-145); Total Protein 6.7 g/dL (6.3-8.2)
[2021-07-18] MEDS: HOLD METFORMIN PRODUCTS FOR 48 HOURS MC SCH (10:55)
[2021-07-18] MEDS: ENOXAPARIN SODIUM SQ SCH ×2 (10:57→16:08)
[2021-07-18] MEDS: Paxil 20 MG PO SCH (13:09)
--- NOTE | 2021-07-18 14:06 | PROG NOTE ---
DATE: 07/16/2021 HISTORY: Sandra De Souza was seen in emergency room #5. She is young. This is her first episode. She said she had a little discomfort about a week to ten days ago. This sort of cleared but then two days ago started again and was worse. Left lower quadrant, descending colon sigmoid junction area. She is tender there. Her CT scan shows microperforation sort of localized and contained. She certainly needs to be in the hospital. She will be admitted. IV antibiotics, observation, initially NPO. She will need a repeat CT scan some time Sunday or Sunday.
--- NOTE | 2021-07-18 15:32 | PROG NOTE ---
DATE: 07/17/2021 HISTORY: Miss De Souza is sitting up in bed. Her white count has come down from 18,000 to 13,000. She said the pain has not really changed much. She is on IV antibiotics, GI rest. She has had sips of clear liquids. She said she had some discomfort when she takes the liquids. She was instructed to take minimal clear liquids. She will need a repeat CT probably Sunday. IMPRESSION: Slight laboratory improvement, clinically stable. PLAN: Continue follow up. It was mentioned to her that she has about a 50% chance getting operated on for this disorder but it is quite substantial yet and it will take some patience and effort to nurture her through this without surgical intervention.
[2021-07-18] MEDS: Zofran 4 MG/2 ML VIAL IV PRN (19:59)
[2021-07-19] MEDS: FLAGYL 500 MG IVPB 500 MG/100 ML BAG IV SCH ×4 (00:09→18:22)
[2021-07-19] MEDS: Zosyn 3.375 GM Vial 3.375 GM in Sodium Chloride 100ML MINI-BAG PLUS 100 ML IV SCH ×4 (00:10→17:32)
[2021-07-19] MEDS: HOLD METFORMIN PRODUCTS FOR 48 HOURS MC SCH ×2 (05:17→09:47)
[2021-07-19] MEDS: Sodium Chloride 0.9% 1000 ML 1,000 ML IV SCH ×2 (05:37→17:32)
[2021-07-19 05:43] LABS: Absolute Neutrophil Ct (ANC) 6.56 (1.4-6.9); BASOPHIL % 0.4 % (0.0-0.4); Basophil (Absolute #) 0.03 (0-0.4); Eosinophil % 0.8 % (0.00-5.0); Eosinophil (Absolute #) 0.07 (0-0.5); Hematocrit 37.9 % (35-47); Hemoglobin 12.3 gm/dl (12.0-16.0); Lymphocyte (Absolute #) 1.33 (1.0-4.6); Lymphocytes % 15.5 % (24.0-44.0); Mean Cell Volume 92.9 fl (78-100); Mean Corpuscular Hemoglobin 30.1 pg (26-32); Mean Corpuscular Hgb Concent. 32.5 g/dl (32-36); Mean Platelet Volume 9.6 fl (7.5-11.0); Monocyte (Absolute #) 0.58 (0.0-1.3); Monocytes % 6.8 % (0.0-12.0); Neutrophil % 76.5 % (36.0-66.0); Platelet Count 228 K/mm3 (150-450); Red Blood Count 4.08 M/mm3 (4.1-5.4); Red Cell Distribution Width 12.5 % (11.5-14.0); White Blood Count 8.6 K/mm3 (4.0-10.5)
[2021-07-19 06:28] LABS: ALBUMIN 3.6 g/dL (3.5-5.0); ALKALINE PHOSPHATASE 89 U/L (38-126); ANION GAP 14.8 MEQ/L (5-15); BLOOD UREA NITROGEN 5 mg/dL (7-17); CHLORIDE 107 mmol/L (98-107); Calcium 8.6 mg/dL (8.4-10.2); Carbon Dioxide 23 mmol/L (22-30); Creatinine 1 0.52 mg/dL (0.52-1.04); EST GLOMERULAR FILTRATION RATE > 60.0 ML/MIN; Glucose 143 mg/dL (74-106); Potassium 3.7 mmol/L (3.5-5.1); SGOT/AST 42 U/L (14-36); SGPT/ALT 85 U/L (0-35); SODIUM 141 mmol/L (137-145); Total Protein 6.6 g/dL (6.3-8.2)
[2021-07-19] MEDS: ENOXAPARIN SODIUM SQ SCH (09:51)
[2021-07-19] MEDS: Paxil 20 MG PO SCH ×2 (12:02→12:04)
--- NOTE | 2021-07-19 12:28 | XRAY ---
Indication: Abdomen/flank pain. Diverticulitis. Multiple contiguous images obtained through the abdomen and pelvis using 80 cc Isovue 370 contrast. Comparison: July 16, 2021. Lung bases remain clear. Heart not enlarged. Noncontrasted stomach and bowel loops again nonobstructed with normal appendix. Stable scattered descending/sigmoid diverticulosis and mild mid to proximal sigmoid diverticulitis. Again no free fluid/air. Stable fatty liver and cholecystectomy. Remaining liver, pancreas, spleen, adrenal glands, kidneys, ureters, bladder, uterus, and aorta are unremarkable. Impression: 1. Stable sigmoid diverticulitis without complications. 2. Again incidental fatty liver. 3. Remaining CT abdomen/pelvis with contrast exam is negative.
[2021-07-19] MEDS ORDERED: HOLD METFORMIN PRODUCTS FOR 48 HOURS MC SCH (16:30)
[2021-07-20] MEDS: FLAGYL 500 MG IVPB 500 MG/100 ML BAG IV SCH ×3 (00:15→11:07)
[2021-07-20] MEDS: Sodium Chloride 0.9% 1000 ML 1,000 ML IV SCH ×2 (00:16→03:50)
[2021-07-20] MEDS: Zosyn 3.375 GM Vial 3.375 GM in Sodium Chloride 100ML MINI-BAG PLUS 100 ML IV SCH ×3 (00:57→12:18)
[2021-07-20 05:49] LABS: Absolute Neutrophil Ct (ANC) 6.53 (1.4-6.9); BASOPHIL % 0.2 % (0.0-0.4); Basophil (Absolute #) 0.02 (0-0.4); Eosinophil % 1.4 % (0.00-5.0); Eosinophil (Absolute #) 0.12 (0-0.5); Hematocrit 35.9 % (35-47); Hemoglobin 11.9 gm/dl (12.0-16.0); Lymphocyte (Absolute #) 1.47 (1.0-4.6); Lymphocytes % 16.9 % (24.0-44.0); Mean Cell Volume 90.7 fl (78-100); Mean Corpuscular Hemoglobin 30.1 pg (26-32); Mean Corpuscular Hgb Concent. 33.1 g/dl (32-36); Mean Platelet Volume 9.4 fl (7.5-11.0); Monocyte (Absolute #) 0.58 (0.0-1.3); Monocytes % 6.7 % (0.0-12.0); Neutrophil % 74.8 % (36.0-66.0); Platelet Count 248 K/mm3 (150-450); Red Blood Count 3.96 M/mm3 (4.1-5.4); Red Cell Distribution Width 12.3 % (11.5-14.0); White Blood Count 8.7 K/mm3 (4.0-10.5)
[2021-07-20 06:34] LABS: ALBUMIN 3.5 g/dL (3.5-5.0); ALKALINE PHOSPHATASE 76 U/L (38-126); ANION GAP 12.3 MEQ/L (5-15); BLOOD UREA NITROGEN 4 mg/dL (7-17); CHLORIDE 106 mmol/L (98-107); Calcium 8.6 mg/dL (8.4-10.2); Carbon Dioxide 27 mmol/L (22-30); Creatinine 1 0.55 mg/dL (0.52-1.04); EST GLOMERULAR FILTRATION RATE > 60.0 ML/MIN; Glucose 141 mg/dL (74-106); Potassium 3.9 mmol/L (3.5-5.1); SGOT/AST 27 U/L (14-36); SGPT/ALT 57 U/L (0-35); SODIUM 141 mmol/L (137-145); Total Protein 6.3 g/dL (6.3-8.2)
--- NOTE | 2021-07-20 08:57 | PCM.NOTE ---
Date and Time 07/18/21 1300 Patient is slowly improving .Surgery has advanced diet from clear to to full liquids . Abd pain is improving. WBC is coming down. Objective Exam General Appearance: no apparent distress (is hungry) Neurologic Exam: alert, oriented x 3, cooperative, normal mood/affect Skin Exam: normal color, warm, dry Respiratory Exam: normal breath sounds Cardiovascular Exam: regular rate/rhythm Gastrointestinal/Abdomen Exam: tenderness (across low abdomen 1-2+/4) Extremity Exam: normal inspection OBJECTIVE DATA Vital Signs: Vital Signs - 24 hr Temp Pulse Resp BP Pulse Ox 07/20/21 04:00 98.4 F 92 H 20 100/53 92 L 07/19/21 23:58 98.4 F 81 20 111/56 95 07/19/21 19:24 97.9 F 71 18 126/58 97 07/19/21 15:51 98.2 F 56 L 17 123/56 97 07/19/21 12:00 95.3 F 77 18 119/58 98 Pain Assessment - Last Documented Pain Intensity 0 Pain Scale Used 0-10 Pain Scale Intake and Output: Intake & Output 07/17/21 07/18/21 07/19/21 07/20/21 11:59 11:59 11:59 11:59 Intake Total 4683 4985 3878 3207 Output Total 4300 5300 Balance 383 -315 3878 3207 Weight 126.1 kg 126 kg 124.6 kg Lab Results: Lab Results-Last 24 Hours 07/19/21 07/19/21 07/20/21 Range/Units 12:15 16:38 04:45 WBC 8.7 (4.0-10.5) K/mm3 RBC 3.96 L (4.1-5.4) M/mm3 Hgb 11.9 L (12.0-16.0) gm/dl Hct 35.9 (35-47) % MCV 90.7 (78-100) fl MCH 30.1 (26-32) pg MCHC 33.1 (32-36) g/dl RDW 12.3 (11.5-14.0) % Plt Count 248 (150-450) K/mm3 MPV 9.4 (7.5-11.0) fl Gran % 74.8 H (36.0-66.0) % Eos # (Auto) 0.12 (0-0.5) Absolute Lymphs (auto) 1.47 (1.0-4.6) Absolute Monos (auto) 0.58 (0.0-1.3) Lymphocytes % 16.9 L (24.0-44.0) % Monocytes % 6.7 (0.0-12.0) % Eosinophils % 1.4 (0.00-5.0) % Basophils % 0.2 (0.0-0.4) % Absolute Granulocytes 6.53 (1.4-6.9) Basophils # 0.02 (0-0.4) Sodium (137-145) mmol/L Potassium (3.5-5.1) mmol/L Chloride (98-107) mmol/L Carbon Dioxide (22-30) mmol/L Anion Gap (5-15) MEQ/L BUN (7-17) mg/dL Creatinine (0.52-1.04) mg/dL Estimated GFR ML/MIN Glucose (74-106) mg/dL POC Glucometer 140 H 121 H (74 to 106) mg/dL Calcium (8.4-10.2) mg/dL Total Bilirubin (0.2-1.3) mg/dL AST (14-36) U/L ALT (0-35) U/L Alkaline Phosphatase (38-126) U/L Serum Total Protein (6.3-8.2) g/dL Albumin (3.5-5.0) g/dL 07/20/21 07/20/21 Range/Units 04:45 07:12 WBC (4.0-10.5) K/mm3 RBC (4.1-5.4) M/mm3 Hgb (12.0-16.0) gm/dl Hct (35-47) % MCV (78-100) fl MCH (26-32) pg MCHC (32-36) g/dl RDW (11.5-14.0) % Plt Count (150-450) K/mm3 MPV (7.5-11.0) fl Gran % (36.0-66.0) % Eos # (Auto) (0-0.5) Absolute Lymphs (auto) (1.0-4.6) Absolute Monos (auto) (0.0-1.3) Lymphocytes % (24.0-44.0) % Monocytes % (0.0-12.0) % Eosinophils % (0.00-5.0) % Basophils % (0.0-0.4) % Absolute Granulocytes (1.4-6.9) Basophils # (0-0.4) Sodium 141 (137-145) mmol/L Potassium 3.9 (3.5-5.1) mmol/L Chloride 106 (98-107) mmol/L Carbon Dioxide 27 (22-30) mmol/L Anion Gap 12.3 (5-15) MEQ/L BUN 4 L (7-17) mg/dL Creatinine 0.55 (0.52-1.04) mg/dL Estimated GFR > 60.0 ML/MIN Glucose 141 H (74-106) mg/dL POC Glucometer 136 H (74 to 106) mg/dL Calcium 8.6 (8.4-10.2) mg/dL Total Bilirubin 0.50 (0.2-1.3) mg/dL AST 27 (14-36) U/L ALT 57 H (0-35) U/L Alkaline Phosphatase 76 (38-126) U/L Serum Total Protein 6.3 (6.3-8.2) g/dL Albumin 3.5 (3.5-5.0) g/dL Radiology Exams: Radiology Procedures Category Date Time Status ABDOMEN AND PELVIS W CONTRAST [CT] Urgent Exams 07/19/21 09:05 Completed Multi-Disciplinary Progress Notes: Multi-Disciplinary Progress Notes 07/19/21 09:59 Case Management Note by Any Salguero PATIENT CONTINUES TO DENY ANY NEW NEEDS AT TIME OF DC. SHE PLANS TO RETURN HOME TO HER PRIOR LEVEL OF FUNCTIONING AT TIME OF DC Initialized on 07/19/21 09:59 - END OF NOTE Assessment/Plan (1) Diverticulitis of colon with perforation Current Visit: Yes Status: Acute Assessment & Plan: improving,diet advanced per surgery Code(s): K57.20 - DVTRCLI OF LG INT W PERFORATION AND ABSCESS W/O BLEEDING
[2021-07-20] MEDS: ENOXAPARIN SODIUM SQ SCH (09:04)
--- NOTE | 2021-07-20 09:13 | PCM.NOTE ---
Date and Time: 07/20/21909 Subjective Assessment: Patient continues to improve. Surgery advanced diet to a low residue diet. Surgery plans possible home today on oral antibiotics per patient. She is in the shower,talking to me through the door. OBJECTIVE DATA Vital Signs: Vital Signs - 24 hr Temp Pulse Resp BP Pulse Ox 07/20/21 04:00 98.4 F 92 H 20 100/53 92 L 07/19/21 23:58 98.4 F 81 20 111/56 95 07/19/21 19:24 97.9 F 71 18 126/58 97 07/19/21 15:51 98.2 F 56 L 17 123/56 97 07/19/21 12:00 95.3 F 77 18 119/58 98 Pain Assessment - Last Documented Pain Intensity 0 Pain Scale Used 0-10 Pain Scale Intake and Output: Intake & Output 07/17/21 07/18/21 07/19/21 07/20/21 11:59 11:59 11:59 11:59 Intake Total 4683 4913 3878 3207 Output Total 4300 5300 Balance 383 -315 3878 3207 Weight 126.1 kg 126 kg 124.6 kg Lab Results: Lab Results-Last 24 Hours 07/19/21 07/19/21 07/20/21 Range/Units 12:15 16:38 04:45 WBC 8.7 (4.0-10.5) K/mm3 RBC 3.96 L (4.1-5.4) M/mm3 Hgb 11.9 L (12.0-16.0) gm/dl Hct 35.9 (35-47) % MCV 90.7 (78-100) fl MCH 30.1 (26-32) pg MCHC 33.1 (32-36) g/dl RDW 12.3 (11.5-14.0) % Plt Count 248 (150-450) K/mm3 MPV 9.4 (7.5-11.0) fl Gran % 74.8 H (36.0-66.0) % Eos # (Auto) 0.12 (0-0.5) Absolute Lymphs (auto) 1.47 (1.0-4.6) Absolute Monos (auto) 0.58 (0.0-1.3) Lymphocytes % 16.9 L (24.0-44.0) % Monocytes % 6.7 (0.0-12.0) % Eosinophils % 1.4 (0.00-5.0) % Basophils % 0.2 (0.0-0.4) % Absolute Granulocytes 6.53 (1.4-6.9) Basophils # 0.02 (0-0.4) Sodium (137-145) mmol/L Potassium (3.5-5.1) mmol/L Chloride (98-107) mmol/L Carbon Dioxide (22-30) mmol/L Anion Gap (5-15) MEQ/L BUN (7-17) mg/dL Creatinine (0.52-1.04) mg/dL Estimated GFR ML/MIN Glucose (74-106) mg/dL POC Glucometer 140 H 121 H (74 to 106) mg/dL Calcium (8.4-10.2) mg/dL Total Bilirubin (0.2-1.3) mg/dL AST (14-36) U/L ALT (0-35) U/L Alkaline Phosphatase (38-126) U/L Serum Total Protein (6.3-8.2) g/dL Albumin (3.5-5.0) g/dL 07/20/21 07/20/21 Range/Units 04:45 07:12 WBC (4.0-10.5) K/mm3 RBC (4.1-5.4) M/mm3 Hgb (12.0-16.0) gm/dl Hct (35-47) % MCV (78-100) fl MCH (26-32) pg MCHC (32-36) g/dl RDW (11.5-14.0) % Plt Count (150-450) K/mm3 MPV (7.5-11.0) fl Gran % (36.0-66.0) % Eos # (Auto) (0-0.5) Absolute Lymphs (auto) (1.0-4.6) Absolute Monos (auto) (0.0-1.3) Lymphocytes % (24.0-44.0) % Monocytes % (0.0-12.0) % Eosinophils % (0.00-5.0) % Basophils % (0.0-0.4) % Absolute Granulocytes (1.4-6.9) Basophils # (0-0.4) Sodium 141 (137-145) mmol/L Potassium 3.9 (3.5-5.1) mmol/L Chloride 106 (98-107) mmol/L Carbon Dioxide 27 (22-30) mmol/L Anion Gap 12.3 (5-15) MEQ/L BUN 4 L (7-17) mg/dL Creatinine 0.55 (0.52-1.04) mg/dL Estimated GFR > 60.0 ML/MIN Glucose 141 H (74-106) mg/dL POC Glucometer 136 H (74 to 106) mg/dL Calcium 8.6 (8.4-10.2) mg/dL Total Bilirubin 0.50 (0.2-1.3) mg/dL AST 27 (14-36) U/L ALT 57 H (0-35) U/L Alkaline Phosphatase 76 (38-126) U/L Serum Total Protein 6.3 (6.3-8.2) g/dL Albumin 3.5 (3.5-5.0) g/dL Radiology Exams: Radiology Procedures Category Date Time Status ABDOMEN AND PELVIS W CONTRAST [CT] Urgent Exams 07/19/21 09:05 Completed Multi-Disciplinary Progress Notes: Multi-Disciplinary Progress Notes 07/19/21 09:59 Case Management Note by Any Salguero PATIENT CONTINUES TO DENY ANY NEW NEEDS AT TIME OF DC. SHE PLANS TO RETURN HOME TO HER PRIOR LEVEL OF FUNCTIONING AT TIME OF DC Initialized on 07/19/21 09:59 - END OF NOTE Assessment/Plan (1) Diverticulitis of colon with perforation Current Visit: Yes Status: Acute Code(s): K57.20 - DVTRCLI OF LG INT W PERFORATION AND ABSCESS W/O BLEEDING (2) Prediabetes Current Visit: Yes Status: Chronic Code(s): R73.03 - PREDIABETES (3) Anxiety Current Visit: Yes Status: Chronic Code(s): F41.9 - ANXIETY DISORDER, UNSPECIFIED
[2021-07-20] MEDS: Paxil 20 MG PO SCH (12:20)
[2021-07-20 15:44] VITALS: BP 124/77; PULSE 78; O2SAT 97
--- NOTE | 2021-07-20 16:10 | PCM.DCORD ---
- Discharge Disposition: Home, Self-Care Condition: Stable Prescriptions: New Metronidazole 500 mg [Flagyl 500 MG] 500 mg PO BID #10 tablet Cefdinir [Omnicef 300 mg] 300 mg PO BID #10 cap Continue PARoxetine HCl [Paxil] 30 mg PO LUNCH Clonazepam 0.5 mg [Klonopin 0.5 MG] 0.5 mg PO DAILY PRN PRN PRN Reason: Anxiety Metformin HCl 500 mg [Glucophage 500 MG] 500 mg PO BIDWM Additional Instructions: Have refer to general surgeon if needed. Follow up with: MARAL ARCE [Primary Care Provider] - 07/29/21 9:30 am
== END 2021-07-20 17:25 | disposition home or self-care (01) | DRG 392 ==
LOC: ED 12:06 → MED SURG 16:48 → OBSVTOIN 07-17 13:14
PROVIDERS: ADMIT Family Medicine; ATTEND Family Medicine
DX: K57.20 Diverticulitis of large intestine with perforation and abscess without bleeding (principal); R61 Generalized hyperhidrosis; R50.9 Fever, unspecified; R73.03 Prediabetes; R11.0 Nausea; Z79.899 Other long term (current) drug therapy; F41.9 Anxiety disorder, unspecified; Z20.822 Contact with and (suspected) exposure to COVID-19
CPT/HCPCS: 36000; 36415; 74177; 80048; 80053; 81001; 82150; 82947; 83036; 83605; 83690; 84443; 85025; 86900; 86901; 96360; 96361; 96365; 96367; 96374; 96375; 96376; 99285; G0378; J1170; J1650; J2405; U0003; A9270-GY

== ENCOUNTER 2021-10-05 08:08 | Emergency (ER) | payer BC ==
[2021-10-05] MEDS ORDERED: Sodium Chloride 0.9% 1000 ML 1,000 ML IV STA (08:34)
[2021-10-05] MEDS ORDERED: MOTRIN 600 MG PO ONE (08:38)
[2021-10-05] MEDS ORDERED: Zofran 4 MG/2 ML VIAL ONE (08:59)
[2021-10-05] MEDS ORDERED: MOTRIN 600 MG ONE (08:59)
[2021-10-05] MEDS ORDERED: Sodium Chloride 0.9% 1000 ML 1,000 ML ONE (08:59)
[2021-10-05] MEDS ORDERED: Zofran 4 MG/2 ML VIAL IV ONE (08:59)
--- NOTE | 2021-10-05 09:00 | ERPHSYRPT ---
- History of Present Illness Time Seen by Provider: 10/05/21 08:40 Source: patient Exam Limitations: no limitations Patient Subjective Stated Complaint: fever, cough. COVID + Triage Nursing Assessment: pt to ED c/o fever x 2 days and new onset cough and NV today. denies CP, does not appear in resp distress. denies abd pain. temp max 101 at home. last dose ibuprofen at 0430. temp on arrival 101.6 oral. Physician History: Patient is a 46-year-old female history of diabetes unvaccinated positive history of Covid diagnosed on 26 September presents to our ED today with complaints of nausea and vomiting and cough. Nausea vomiting and cough started today. Patient states she is unable to tolerate p.o. Patient has been e xperiencing a fever of 101.6 x 2 days. Patient feels she is becoming dehydrated. Symptoms are progressive. Symptoms are moderate in intensity. No specific worsening or improving factors. Patient voices no other complaints concerns at this time. Timing/Duration: day(s) (2 days) Severity: moderate Modifying Factors: Improves With: ibuprofen (Patient last took ibuprofen this morning at 430.) Allergies/Adverse Reactions: cimetidine [From Tagamet] Adverse Reaction (Intermediate, Verified 07/16/21 12:29) Vomiting acetaminophen [From Tylenol] Adverse Reaction (Verified 07/16/21 17:38) pt has fatty liver disease; Dr advised to vijayar take tylenol Home Medications: Clonazepam 0.5 mg [Klonopin 0.5 MG] 0.5 mg PO DAILY PRN PRN 03/26/15 [History] PARoxetine HCl [Paxil] 30 mg PO LUNCH 03/26/15 [History] Metformin HCl 500 mg [Glucophage 500 MG] 500 mg PO BIDWM 07/16/21 [History] Hx Tetanus, Diphtheria Vaccination/Date Given: No Hx Influenza Vaccination/Date Given: No Hx Pneumococcal Vaccination/Date Given: No Immunizations Up to Date: No Travel Risk - International Travel Have you traveled outside of the country in past 3 weeks: No - Coronavirus Screening Are you exhibiting any of the following symptoms?: Yes Symptoms: Fever, Cough: New Onset Close contact with a COVID-19 positive Pt in past 14-21 Days: No - Vaccine Status Have you recieved a Covid-19 vaccination: No - Review of Systems Constitutional: No Symptoms, No Fever, No Chills Eyes: No Symptoms Ears, Nose, & Throat: No Symptoms Respiratory: No Symptoms, No Cough, No Dyspnea Cardiac: No Symptoms, No Chest Pain, No Edema, No Syncope Abdominal/Gastrointestinal: No Symptoms, No Abdominal Pain, No Nausea, No Vomiting, No Diarrhea Genitourinary Symptoms: No Symptoms, No Dysuria Musculoskeletal: No Symptoms, No Back Pain, No Neck Pain Skin: No Symptoms, No Rash Neurological: No Symptoms, No Dizziness, No Focal Weakness, No Sensory Changes Psychological: No Symptoms Endocrine: No Symptoms Hematologic/Lymphatic: No Symptoms Immunological/Allergic: No Symptoms All Other Systems: Reviewed and Negative - Past Medical History Pertinent Past Medical History: Yes Neurological History: No Pertinent History ENT History: No Pertinent History Cardiac History: No Pertinent History Respiratory History: Pneumonia Endocrine Medical History: Diabetes Type II Musculoskeletal History: No Pertinent History GI Medical History: Diverticulitis, Diverticulosis, Gallbladder Disease, Other History: No Pertinent History Psycho-Social History: Anxiety Female Reproductive Disorders: Endometriosis, Menstrual Problems Other Medical History: Fatty liver - Past Surgical History Past Surgical History: Yes Neuro Surgical History: No Pertinent History Cardiac: No Pertinent History Respiratory: No Pertinent History Gastrointestinal: Cholecystectomy Genitourinary: No Pertinent History Musculoskeletal: No Pertinent History Female Surgical History: Section, Other Other Surgical History: ablasion; several laparoscopic surgeries for endometriosis and ovarian cysts - Social History Smoking Status: Former smoker How long have you smoked: 15 Exposure to second hand smoke: No Drug Use: none Patient Lives Alone: No - Female History Hx Now: No - Nursing Vital Signs Nursing Vital Signs: Initial Vital Signs Temperature 101.6 F 10/05/21 08:31 Pulse Rate 101 H 10/05/21 08:31 Respiratory Rate 21 10/05/21 08:31 Blood Pressure 134/75 10/05/21 08:31 O2 Sat by Pulse Oximetry 94 L 10/05/21 08:31 Pain Scale Pain Intensity 0 - Physical Exam General Appearance: no apparent distress, alert Eye Exam: PERRL/EOMI, eyes nml inspection Ears, Nose, Throat Exam: normal ENT inspection, TMs normal, pharynx normal, moist mucous membranes Neck Exam: normal inspection, non-tender, supple, full range of motion Respiratory Exam: normal breath sounds, lungs clear, airway intact, No chest tenderness, No respiratory distress Cardiovascular Exam: regular rate/rhythm, normal heart sounds, normal peripheral pulses Gastrointestinal/Abdomen Exam: soft, normal bowel sounds, No tenderness, No distention, No mass, No guarding Back Exam: normal inspection, normal range of motion, No CVA tenderness, No vertebral tenderness Extremity Exam: normal inspection, normal range of motion, pelvis stable Neurologic Exam: alert, oriented x 3, cooperative, normal mood/affect, sensation nml, No motor deficits Skin Exam: normal color, warm, dry, No rash Lymphatic Exam: No adenopathy SpO2 Interpretation: normal SpO2: 94 O2 Delivery: Room Air - Course Nursing assessment & vital signs reviewed: Yes EKG Interpreted by Me: RATE (93), Sinus Rhythm, NORMAL AXIS, NORMAL INTERVALS - Radiology Exams Chest X-ray Interpretation: Teleradiologist Report (Subtle bilateral patchy interstitial alveolar opacities without consolidation or large effusion. Remaining heart and bony thorax are unremarkable.) Ordered Tests: Active Orders 24 hr Category Date Time Status Fancy Packer STAT Care 10/05/21 08:35 Active EKG-ER Only STAT Care 10/05/21 08:34 Active IV Insertion STAT Care 10/05/21 08:34 Active Pulse Oximetry (ED) STAT Care 10/05/21 08:34 Active CHEST 1 VIEW (PORTABLE) Stat Exams 10/05/21 08:35 Completed CBC W DIFF Stat Lab 10/05/21 08:53 Completed CMP Stat Lab 10/05/21 08:53 Completed INFLUENZA A+B RAUL Stat Lab 10/05/21 08:55 Completed TROPONIN Q3H Lab 10/05/21 08:53 Completed TROPONIN Q3H Lab 10/05/21 11:45 Ordered TROPONIN Q3H Lab 10/05/21 14:45 Ordered TROPONIN Q3H Lab 10/05/21 17:45 Ordered TROPONIN Q3H Lab 10/05/21 20:45 Ordered UA W/RFX UR CULTURE Stat Lab 10/05/21 09:09 Ordered Medication Summary Discontinued Medications Generic Name Dose Route Start Last Admin Trade Name Freq PRN Reason Stop Dose Admin Dexamethasone Sodium Phosphate 8 mg 10/05/21 09:27 10/05/21 09:29 Dexamethasone Sod Phosphate 10 Mg/Ml IV 10/05/21 09:28 8 mg STAT ONE Administration Dexamethasone Sodium Phosphate Confirm 10/05/21 09:28 Dexamethasone Sod Phosphate 10 Mg/Ml Administered 10/05/21 09:29 Dose 10 mg .ROUTE .STK-MED ONE Sodium Chloride 1,000 mls @ 999 mls/hr 10/05/21 08:34 10/05/21 09:01 Sodium Chloride 0.9% 1000 Ml IV 10/05/21 09:34 999 mls/hr .Q1H1M STA Administration Sodium Chloride Confirm 10/05/21 08:59 Sodium Chloride 0.9% 1000 Ml Administered 10/05/21 09:00 Dose 1,000 mls @ ud .ROUTE .STK-MED ONE Ibuprofen 600 mg 10/05/21 08:38 10/05/21 09:02 Ibuprofen 600 Mg Tablet PO 10/05/21 08:39 600 mg STAT ONE Administration Ibuprofen Confirm 10/05/21 08:59 Ibuprofen 600 Mg Tablet Administered 10/05/21 09:00 Dose 600 mg .ROUTE .STK-MED ONE Ondansetron HCl 4 mg 10/05/21 08:59 10/05/21 09:02 Ondansetron Hcl 4 Mg/2 Ml Vial IV 10/05/21 09:00 4 mg STAT ONE Administration Ondansetron HCl Confirm 10/05/21 08:59 Ondansetron Hcl 4 Mg/2 Ml Vial Administered 10/05/21 09:00 Dose 4 mg .ROUTE .STK-MED ONE Lab/Rad Data: Laboratory Result Diagrams 10/05/21 08:53 10/05/21 08:53 Laboratory Results 10/05/21 10/05/21 10/05/21 Range/Units 08:55 08:53 08:53 WBC (4.0-10.5) K/mm3 RBC (4.1-5.4) M/mm3 Hgb (12.0-16.0) gm/dl Hct (35-47) % MCV (78-100) fl MCH (26-32) pg MCHC (32-36) g/dl RDW (11.5-14.0) % Plt Count (150-450) K/mm3 MPV (7.5-11.0) fl Gran % (36.0-66.0) % Eos # (Auto) (0-0.5) Absolute Lymphs (auto) (1.0-4.6) Absolute Monos (auto) (0.0-1.3) Lymphocytes % (24.0-44.0) % Monocytes % (0.0-12.0) % Eosinophils % (0.00-5.0) % Basophils % (0.0-0.4) % Absolute Granulocytes (1.4-6.9) Basophils # (0-0.4) Sodium 138 (137-145) mmol/L Potassium 3.9 (3.5-5.1) mmol/L Chloride 102 (98-107) mmol/L Carbon Dioxide 26 (22-30) mmol/L Anion Gap 13.7 (5-15) MEQ/L BUN 10 (7-17) mg/dL Creatinine 0.57 (0.52-1.04) mg/dL Estimated GFR > 60.0 ML/MIN Glucose 132 H (74-106) mg/dL Calcium 8.5 (8.4-10.2) mg/dL Total Bilirubin 0.80 (0.2-1.3) mg/dL AST 51 H (14-36) U/L ALT 65 H (0-35) U/L Alkaline Phosphatase 86 (38-126) U/L Troponin I < 0.012 (0.000-0.034) ng/mL Serum Total Protein 7.7 (6.3-8.2) g/dL Albumin 4.3 (3.5-5.0) g/dL Influenza Type A Ag NEGATIVE (NEGATIVE) Influenza Type B Ag NEGATIVE (NEGATIVE) 10/05/21 Range/Units 08:53 WBC 4.5 (4.0-10.5) K/mm3 RBC 4.76 (4.1-5.4) M/mm3 Hgb 14.0 (12.0-16.0) gm/dl Hct 41.9 (35-47) % MCV 88.0 (78-100) fl MCH 29.4 (26-32) pg MCHC 33.4 (32-36) g/dl RDW 12.6 (11.5-14.0) % Plt Count 154 (150-450) K/mm3 MPV 8.9 (7.5-11.0) fl Gran % 75.4 H (36.0-66.0) % Eos # (Auto) 0 (0-0.5) Absolute Lymphs (auto) 0.74 L (1.0-4.6) Absolute Monos (auto) 0.36 (0.0-1.3) Lymphocytes % 16.4 L (24.0-44.0) % Monocytes % 8.0 (0.0-12.0) % Eosinophils % 0.0 (0.00-5.0) % Basophils % 0.2 (0.0-0.4) % Absolute Granulocytes 3.40 (1.4-6.9) Basophils # 0.01 (0-0.4) Sodium (137-145) mmol/L Potassium (3.5-5.1) mmol/L Chloride (98-107) mmol/L Carbon Dioxide (22-30) mmol/L Anion Gap (5-15) MEQ/L BUN (7-17) mg/dL Creatinine (0.52-1.04) mg/dL Estimated GFR ML/MIN Glucose (74-106) mg/dL Calcium (8.4-10.2) mg/dL Total Bilirubin (0.2-1.3) mg/dL AST (14-36) U/L ALT (0-35) U/L Alkaline Phosphatase (38-126) U/L Troponin I (0.000-0.034) ng/mL Serum Total Protein (6.3-8.2) g/dL Albumin (3.5-5.0) g/dL Influenza Type A Ag (NEGATIVE) Influenza Type B Ag (NEGATIVE) - Progress Progress: improved Progress Note: Patient reassessed. She feels better. Nausea resolved. Patient tolerated p.o. No vomiting. Chest x-ray reveals bilateral patchy interstitial alveolar opacities. In the setting of Covid positive this is likely a Covid pneumonia. Patient received a dose of Decadron. Patient advised to drink plenty of water maintain hydration. A prescription for azithromycin was forwarded to patient's pharmacy in the event that there is an underlying community-acquired pneumonia. Laboratory work-up shows mild hyperglycemia. IV fluids infused. No indication for further work-up at this time. Will discharge home. Patient voices no other complaints or concerns at this time. Patient agrees to follow-up with her primary care doctor within 48 hours for reevaluation. Portions of this note were created with voice recognition technology. There may be grammatical, spelling, punctuation or sound alike errors 10/05/21 09:38 Patient is influenza negative 10/05/21 09:40 Counseled pt/family regarding: lab results, diagnosis, need for follow-up, rad results - Departure Departure Disposition: Home Clinical Impression: Pneumonia due to COVID-19 virus Condition: Stable Critical Care Time: No Referrals: MARAL ARCE [Primary Care Provider] - Follow up/PCP as directed Additional Instructions: Discharge/Care Plan NELSON SEN was seen on 10/05/21 in the Emergency Room. The patient was counseled regarding Diagnosis,Lab results, Imaging studies, need for follow up and when to return to the Emergency Room. Prescriptions given: Discharge Note I have spoken with the patient and/or caregivers. I have explained the patient's condition, diagnosis and treatment plan based on the information available to me at this time. I have answered the patient's and/or caregiver's questions and addressed any concerns. The patient and/or caregivers have as good understanding of the patient's diagnosis, condition and treatment plan as can be expected at this point. The vital signs have been stable. The patient's condition is stable and appropriate for discharge from the emergency department. The patient will pursue further outpatient evaluation with the primary care physician or other designated or consulting physician as outlined in the discharge instructions. The patient and/or caregivers are agreeable to this plan of care and follow-up instructions have been explained in detail. The patient and/or caregivers have received these instruction. The patient/and or caregivers are aware that any significant change in condition or worsening of symptoms should prompt an immediate return to this or the closest emergency department or call 911. Forms: Work/School Release Form Prescriptions: Azithromycin 250 mg [Zithromax 250 MG TABLET] 250 mg PO ZPACK #6 tablet
[2021-10-05 09:01] LABS: BASOPHIL % 0.2 % (0.0-0.4); Basophil (Absolute #) 0.01 (0-0.4); Eosinophil (Absolute #) 0 (0-0.5); Hematocrit 41.9 % (35-47); Lymphocyte (Absolute #) 0.74 (1.0-4.6); Lymphocytes % 16.4 % (24.0-44.0); Mean Corpuscular Hemoglobin 29.4 pg (26-32); Mean Corpuscular Hgb Concent. 33.4 g/dl (32-36); Mean Platelet Volume 8.9 fl (7.5-11.0); Monocyte (Absolute #) 0.36 (0.0-1.3); Neutrophil % 75.4 % (36.0-66.0); Platelet Count 154 K/mm3 (150-450); Red Blood Count 4.76 M/mm3 (4.1-5.4); Red Cell Distribution Width 12.6 % (11.5-14.0); White Blood Count 4.5 K/mm3 (4.0-10.5)
[2021-10-05 09:14] LABS: ALBUMIN 4.3 g/dL (3.5-5.0); ALKALINE PHOSPHATASE 86 U/L (38-126); ANION GAP 13.7 MEQ/L (5-15); BLOOD UREA NITROGEN 10 mg/dL (7-17); CHLORIDE 102 mmol/L (98-107); Calcium 8.5 mg/dL (8.4-10.2); Carbon Dioxide 26 mmol/L (22-30); Creatinine 1 0.57 mg/dL (0.52-1.04); EST GLOMERULAR FILTRATION RATE > 60.0 ML/MIN; Glucose 132 mg/dL (74-106); Potassium 3.9 mmol/L (3.5-5.1); SGOT/AST 51 U/L (14-36); SGPT/ALT 65 U/L (0-35); SODIUM 138 mmol/L (137-145); Total Protein 7.7 g/dL (6.3-8.2)
--- NOTE | 2021-10-05 09:23 | XRAY ---
Indication: Cough and short of breath. Comparison: June 10, 2019. Portable chest demonstrates new subtle bilateral patchy interstitial alveolar opacities without consolidation/large effusion. Remaining heart and bony thorax unremarkable.
[2021-10-05] MEDS ORDERED: DECADRON 10MG INJ. IV ONE (09:27)
[2021-10-05] MEDS ORDERED: DECADRON 10MG INJ. ONE (09:28)
[2021-10-05 09:32] LABS: INFLUENZA A NEGATIVE (NEGATIVE); INFLUENZA B NEGATIVE (NEGATIVE)
== END 2021-10-05 10:22 | disposition home or self-care (01) ==
LOC: ED 08:08
DX: U07.1 COVID-19 (principal); J12.82 Pneumonia due to coronavirus disease 2019; R50.9 Fever, unspecified; R05.9 Cough, unspecified; E11.8 Type 2 diabetes mellitus with unspecified complications; Z79.84 Long term (current) use of oral hypoglycemic drugs
CPT/HCPCS: 36000; 36415; 71045; 80053; 82947; 84484; 85025; 87400; 93005; 93041; 94760; 96374; 96376; 99284; J1100; J2405; A9270-GY

== ENCOUNTER 2023-11-07 17:17 | Emergency (ER) | payer BC ==
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
[2023-11-07 17:45] VITALS: BP 128/82; PULSE 85; RESP 17; TEMP 97.8; O2SAT 97
[2023-11-07] MEDS ORDERED: TORAdol 30 mg Injection IM ONE (20:01)
[2023-11-07] MEDS ORDERED: TORAdol 30 mg Injection ONE (20:07)
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
== END 2023-11-07 20:31 | disposition home or self-care (01) ==
LOC: ED 17:17
DX: Z04.1 Encounter for examination and observation following transport accident (principal); R51.9 Headache, unspecified; M54.2 Cervicalgia; M25.512 Pain in left shoulder; R10.9 Unspecified abdominal pain; E11.9 Type 2 diabetes mellitus without complications; Z79.84 Long term (current) use of oral hypoglycemic drugs; Z79.85 Long-term (current) use of injectable non-insulin antidiabetic drugs; Z79.899 Other long term (current) drug therapy; Z28.310 Unvaccinated for COVID-19
CPT/HCPCS: 70450; 72125; 73030; 74176; 96372; 99285; J1885

== ENCOUNTER 2024-03-22 22:21 | Emergency (ER) | payer BC ==
--- NOTE | 2024-03-22 22:27 | ERPHSYRPT ---
- History of Present Illness Time Seen by Provider: 03/22/24 22:26 Source: patient Exam Limitations: no limitations Physician History: This is a morbidly obese 48-year-old white female patient who presents to the emergency department with coughing that began earlier today and she has had a persistent intermittent cough. It is dry and nonproductive. Patient denies sameer st pain. Patient states that when she coughs it "takes my breath away". Patient has a history of diabetes and anxiety. Patient is concerned that she may have a pneumonia, heart attack. She denies fever. She has no history of documented coronary artery disease Timing/Duration: today Cough Quality/Degree: mild, dry cough Possible Cause: no prior episodes Modifying Factors: Improves With: coughing Associated Symptoms: cough, shortness of breath (When she coughs), No fever, No chest pain/soreness, No headache, No sore throat Allergies/Adverse Reactions: cephalexin [From Keflex] Allergy (Verified 03/22/24 22:27) Rash cimetidine [From Tagamet] Adverse Reaction (Intermediate, Verified 03/22/24 22:27) Vomiting Home Medications: Clonazepam 0.5 mg [Klonopin 0.5 MG] 0.5 mg PO DAILY PRN PRN 03/26/15 [History] PARoxetine HCL [Paxil] 30 mg PO LUNCH 03/26/15 [History] Empagliflozin [Jardiance] 1 tab PO DAILY 11/07/23 [History] Ezetimibe 10 mg [Zetia 10 MG] 1 tab PO DAILY 11/07/23 [History] Tirzepatide [Mounjaro] 10 mg SQ WEEKLY 11/07/23 [History] Phentermine HCl 37.5 mg PO DAILY 03/22/24 [History] Hx Tetanus, Diphtheria Vaccination/Date Given: No Hx Influenza Vaccination/Date Given: No Hx Pneumococcal Vaccination/Date Given: No Travel Risk - International Travel Have you traveled outside of the country in past 3 weeks: No - Emerging Infectious Disease Are you exhibiting symptoms associated with any current EIDs: Yes Symptoms: Cough: New Onset - Review of Systems Constitutional: No Symptoms Eyes: No Symptoms Ears, Nose, & Throat: No Symptoms Respiratory: Cough Cardiac: No Symptoms Abdominal/Gastrointestinal: No Symptoms Genitourinary Symptoms: No Symptoms Musculoskeletal: No Symptoms Skin: No Symptoms Neurological: No Symptoms Psychological: No Symptoms Endocrine: No Symptoms Hematologic/Lymphatic: No Symptoms Immunological/Allergic: No Symptoms All Other Systems: Reviewed and Negative - Past Medical History Pertinent Past Medical History: Yes Neurological History: Other ENT History: No Pertinent History Cardiac History: No Pertinent History Respiratory History: No Pertinent History Endocrine Medical History: Diabetes Type II Musculoskeletal History: No Pertinent History GI Medical History: Diverticulitis, Diverticulosis, Gallbladder Disease, Other History: No Pertinent History Psycho-Social History: Anxiety Female Reproductive Disorders: Endometriosis, Menstrual Problems Other Medical History: FATTY LIVER, - Past Surgical History Past Surgical History: Yes Neuro Surgical History: No Pertinent History Cardiac: No Pertinent History Respiratory: No Pertinent History Gastrointestinal: Cholecystectomy Genitourinary: No Pertinent History Musculoskeletal: No Pertinent History Female Surgical History: Section, Other Other Surgical History: ablasion; several laparoscopic surgeries for endometriosis and ovarian cysts - Social History Smoking Status: Former smoker How long have you smoked: 15 Exposure to second hand smoke: No Drug Use: none Patient Lives Alone: No - Nursing Vital Signs Nursing Vital Signs: Initial Vital Signs Temperature 96.9 F 03/22/24 22:30 Pulse Rate 85 03/22/24 22:30 Respiratory Rate 18 03/22/24 22:30 Blood Pressure 118/58 03/22/24 22:30 O2 Sat by Pulse Oximetry 99 03/22/24 22:30 Pain Scale Pain Intensity 0 - Physical Exam General Appearance: no apparent distress, alert, anxiety, obese Eye Exam: PERRL/EOMI, eyes nml inspection Ears, Nose, Throat Exam: normal ENT inspection, moist mucous membranes Neck Exam: normal inspection, non-tender, supple, full range of motion Respiratory Exam: normal breath sounds, lungs clear, airway intact, No chest tenderness, No respiratory distress Cardiovascular Exam: regular rate/rhythm, normal heart sounds, normal peripheral pulses Gastrointestinal/Abdomen Exam: soft, normal bowel sounds, No tenderness Pelvic Exam: not done Rectal Exam: not done Back Exam: normal inspection, normal range of motion, No CVA tenderness, No vertebral tenderness Extremity Exam: normal inspection, normal range of motion, pelvis stable Neurologic Exam: alert, oriented x 3, cooperative, 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 tested, nml cerebellar function, nml station & gait, sensation nml Skin Exam: normal color, warm, dry Lymphatic Exam: No adenopathy SpO2 Interpretation: normal O2 Delivery: Room Air - Course Nursing assessment & vital signs reviewed: Yes EKG Interpreted by Me: RATE ([id number]), Sinus Rhythm, NORMAL AXIS, NORMAL INTERVALS, NORMAL QRS, NORMAL ST-T, Other (Acute ischemia on today's twelve-lead EKG.) Ordered Tests: Active Orders 24 hr Category Date Time Status EKG-ER Only STAT Care 03/22/24 23:30 Active CHEST 1 VIEW (PORTABLE) Stat Exams 03/22/24 23:08 Taken BMP Stat Lab 03/22/24 23:45 Completed CBC W DIFF Stat Lab 03/22/24 23:45 Completed D-DIMER QUANTITATIVE Stat Lab 03/22/24 23:45 Completed TROPONIN Q4H Lab 03/22/24 23:45 Completed TROPONIN Q4H Lab 03/23/24 03:30 Ordered TROPONIN Q4H Lab 03/23/24 07:30 Ordered Lab/Rad Data: Laboratory Result Diagrams 03/22/24 23:45 03/22/24 23:45 Laboratory Results 03/22/24 03/22/24 03/22/24 Range/Units 23:45 23:45 23:45 WBC 9.6 (4.0-10.5) x10^3/uL RBC 4.86 (4.1-5.4) x10^6/uL Hgb 14.4 (12.0-16.0) g/dL Hct 42.1 (35-47) % MCV 86.6 (78-100) fL MCH 29.6 (26-32) pg MCHC 34.2 (32-36) g/dL RDW 12.1 (11.5-14.0) % Plt Count 249 (150-450) x10^3/uL MPV 8.9 (7.5-11.0) fL Gran % 64.7 (36.0-66.0) % Immature Gran % (Auto) 0.2 (0.00-0.4) % Nucleat RBC Rel Count 0.0 (0.00-0.1) % Eos # (Auto) 0.08 (0-0.5) x10^3/uL Immature Gran # (Auto) 0.02 (0.00-0.03) x10^3u/L Absolute Lymphs (auto) 2.56 (1.0-4.6) x10^3/uL Absolute Monos (auto) 0.67 (0.0-1.3) x10^3/uL Absolute Nucleated RBC 0.00 (0.00-0.01) x10^3u/L Lymphocytes % 26.8 (24.0-44.0) % Monocytes % 7.0 (0.0-12.0) % Eosinophils % 0.8 (0.00-5.0) % Basophils % 0.5 (0.0-0.4) % Absolute Granulocytes 6.18 (1.4-6.9) x10^3/uL Basophils # 0.05 (0-0.4) x10^3/uL D-Dimer 0.22 (0.0-0.50) mg/L Sodium 137 (135-145) mmol/L Potassium 3.8 (3.5-5.1) mmol/L Chloride 103 (98-107) mmol/L Carbon Dioxide 23 (22-30) mmol/L Anion Gap 13.9 (5-15) MEQ/L BUN 10 (7-17) mg/dL Creatinine 0.60 (0.52-1.04) mg/dL Estimated GFR 111.3 ML/MIN Glucose 100 (74-106) mg/dL Calcium 9.1 (8.4-10.2) mg/dL Troponin I < 0.012 (0.000-0.033) ng/mL Influenza Type A Ag (NEGATIVE) Influenza Type B Ag (NEGATIVE) RSV (PCR) (NEGATIVE) SARS-CoV-2 (PCR) (NEGATIVE) Group A Strep Antibody (NEGATIVE) 03/22/24 03/22/24 Range/Units 23:15 23:15 WBC (4.0-10.5) x10^3/uL RBC (4.1-5.4) x10^6/uL Hgb (12.0-16.0) g/dL Hct (35-47) % MCV (78-100) fL MCH (26-32) pg MCHC (32-36) g/dL RDW (11.5-14.0) % Plt Count (150-450) x10^3/uL MPV (7.5-11.0) fL Gran % (36.0-66.0) % Immature Gran % (Auto) (0.00-0.4) % Nucleat RBC Rel Count (0.00-0.1) % Eos # (Auto) (0-0.5) x10^3/uL Immature Gran # (Auto) (0.00-0.03) x10^3u/L Absolute Lymphs (auto) (1.0-4.6) x10^3/uL Absolute Monos (auto) (0.0-1.3) x10^3/uL Absolute Nucleated RBC (0.00-0.01) x10^3u/L Lymphocytes % (24.0-44.0) % Monocytes % (0.0-12.0) % Eosinophils % (0.00-5.0) % Basophils % (0.0-0.4) % Absolute Granulocytes (1.4-6.9) x10^3/uL Basophils # (0-0.4) x10^3/uL D-Dimer (0.0-0.50) mg/L Sodium (135-145) mmol/L Potassium (3.5-5.1) mmol/L Chloride (98-107) mmol/L Carbon Dioxide (22-30) mmol/L Anion Gap (5-15) MEQ/L BUN (7-17) mg/dL Creatinine (0.52-1.04) mg/dL Estimated GFR ML/MIN Glucose (74-106) mg/dL Calcium (8.4-10.2) mg/dL Troponin I (0.000-0.033) ng/mL Influenza Type A Ag NEGATIVE (NEGATIVE) Influenza Type B Ag NEGATIVE (NEGATIVE) RSV (PCR) NEGATIVE (NEGATIVE) SARS-CoV-2 (PCR) NEGATIVE (NEGATIVE) Group A Strep Antibody NOT DETECTED (NEGATIVE) - Progress Progress: improved, re-examined Air Movement: good Progress Note: 03/22/24 23:50 My medical decision making and the assignment of moderate complexity to this patient's medical issue today is based on review of the patient's past medical history, review of the patient's medication list, review of patient drug allergy list, the desire of the patient to have a more complete workup to evaluate heart and lungs, history of present illness and physical findings on examination. The workup in this patient includes CBC, CMP, twelve-lead EKG, troponin level, D-dimer level, viral swabs, group A strep test and chest x-ray. Differential diagnosis includes bronchitis, pneumonia, CHF, pulmonary embolus, other acute cardiac abnormalities. 03/22/24 23:51 I interpreted the patient's chest x-ray. There are no acute cardiopulmonary processes present. Blood Culture(s) Obtained: No Antibiotics given: No Counseled pt/family regarding: lab results, diagnosis, need for follow-up, rad results Medical Desision Making - Independent Historian Additional History obtained from: Spouse - Diagnostic Testing Diagnostic test were ordered, analyzed, and reviewed by me: Yes Radiological Interpretation: Interpreted by me - Risk of complications The pt has a mod risk of morbidity or mortality based on: Need for prescription drug management - Departure Departure Disposition: Home Clinical Impression: Bronchitis Condition: Stable Critical Care Time: No Referrals: MARAL ARCE [Primary Care Provider] - Follow up/PCP as directed Additional Instructions: Drink plenty of fluids. Take your medication as prescribed. Call your primary care provider tomorrow, 03/24/2024 to make arranges for follow-up appointment to be seen in the next 3 to 5 days. Prescriptions: Benzonatate 200 mg PO TID PRN #10 cap PRN Reason: Cough Prednisone 10 mg [Deltasone 10 mg] 10 mg PO TID #12 tablet
[2024-03-22 22:49] VITALS: RESP 18; TEMP 96.9
[2024-03-22 23:47] LABS: Absolute Neutrophil Ct (ANC) 6.18 x10^3/uL (1.4-6.9); BASOPHIL % 0.5 % (0.0-0.4); Basophil (Absolute #) 0.05 x10^3/uL (0-0.4); Eosinophil % 0.8 % (0.00-5.0); Eosinophil (Absolute #) 0.08 x10^3/uL (0-0.5); Hematocrit 42.1 % (35-47); Hemoglobin 14.4 g/dL (12.0-16.0); IMMATURE GRAN # 0.02 x10^3u/L (0.00-0.03); IMMATURE GRAN % 0.2 % (0.00-0.4); Lymphocyte (Absolute #) 2.56 x10^3/uL (1.0-4.6); Lymphocytes % 26.8 % (24.0-44.0); Mean Cell Volume 86.6 fL (78-100); Mean Corpuscular Hemoglobin 29.6 pg (26-32); Mean Corpuscular Hgb Concent. 34.2 g/dL (32-36); Mean Platelet Volume 8.9 fL (7.5-11.0); Monocyte (Absolute #) 0.67 x10^3/uL (0.0-1.3); Neutrophil % 64.7 % (36.0-66.0); Platelet Count 249 x10^3/uL (150-450); Red Blood Count 4.86 x10^6/uL (4.1-5.4); Red Cell Distribution Width 12.1 % (11.5-14.0); White Blood Count 9.6 x10^3/uL (4.0-10.5)
[2024-03-22 23:54] LABS: INFLUENZA A NEGATIVE (NEGATIVE); INFLUENZA B NEGATIVE (NEGATIVE); RESPIRATORY SYNCTIAL VIRUS NEGATIVE (NEGATIVE); SARS-CoV-2 Xpert Express NEGATIVE (NEGATIVE)
[2024-03-23 00:11] LABS: ANION GAP 13.9 MEQ/L (5-15); BLOOD UREA NITROGEN 10 mg/dL (7-17); CHLORIDE 103 mmol/L (98-107); Calcium 9.1 mg/dL (8.4-10.2); Carbon Dioxide 23 mmol/L (22-30); EST GLOMERULAR FILTRATION RATE 111.3 ML/MIN; Glucose 100 mg/dL (74-106); Potassium 3.8 mmol/L (3.5-5.1); SODIUM 137 mmol/L (135-145); TROPONIN < 0.012 ng/mL (0.000-0.033)
[2024-03-23] MEDS ORDERED: HYDROCODONE-ACETAMIN 2.5-108/5 ML SOLUTION ONE (00:21)
[2024-03-23] MEDS ORDERED: DELTASONE 20 MG ONE (00:21)
[2024-03-23] MEDS: HYDROCODONE-ACETAMIN 2.5-108/5 ML SOLUTION PO STA (00:22)
[2024-03-23] MEDS: DELTASONE 20 MG PO ONE (00:22)
[2024-03-23 00:39] VITALS: BP 124/88; PULSE 80; O2SAT 97
--- NOTE | 2024-03-23 07:36 | XRAY ---
Indication: Cough. Comparison: October 05, 2021 Portable chest is now clear. Heart not enlarged. Bony thorax intact again with mild degenerative changes. No new/acute findings.
== END 2024-03-23 00:45 | disposition home or self-care (01) ==
LOC: ED 22:21
DX: J40 Bronchitis, not specified as acute or chronic (principal); R05.1 Acute cough; E11.9 Type 2 diabetes mellitus without complications; Z79.52 Long term (current) use of systemic steroids; Z79.84 Long term (current) use of oral hypoglycemic drugs; Z79.85 Long-term (current) use of injectable non-insulin antidiabetic drugs; Z79.899 Other long term (current) drug therapy
CPT/HCPCS: 0241U; 36415; 71045; 80048; 84484; 85025; 85379; 87651; 93005; 99284; A9270-GY

== ENCOUNTER 2024-04-30 07:47 | Day surgery (SDC) | payer BC ==
[2024-04-30] MEDS ORDERED: Decadron 4 MG INJ IV ONE (07:48)
[2024-04-30] MEDS ORDERED: Sodium Chloride 0.9(Preservative Free) 10 ML IJ ONE (07:48)
[2024-04-30 08:21] LABS: HCG URINE TEST NEGATIVE (NEGATIVE)
[2024-04-30] MEDS ORDERED: DIPRIVAN 200 MG/20 ML IV ONE (09:13)
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
--- NOTE | 2024-04-30 10:50 | XRAY ---
29 seconds of fluoroscopy was used in surgery for a right L4-S1 transforaminal LEIGH ANN.
[2024-04-30] MEDS ORDERED: Lactated Ringers 1,000 ML IV ONE (15:01)
== END 2024-04-30 09:50 | disposition home or self-care (01) ==
LOC: SDC-PAIN 07:47
PROVIDERS: ATTEND Psychiatry & Neurology Pain Medicine
DX: M54.16 Radiculopathy, lumbar region (principal); E11.9 Type 2 diabetes mellitus without complications
CPT/HCPCS: 64483; 64484; 72100; 77003; 81025; 82947; J1100; J2704; Q9966

== ENCOUNTER 2025-03-10 06:04 | Day surgery (SDC) | payer BC ==
[2025-03-10] MEDS ORDERED: Lactated Ringers 1,000 ML IV SCH (06:30)
[2025-03-10 06:33] VITALS: RESP 16; TEMP 96.4
[2025-03-10] MEDS ORDERED: propofoL IV ONE ×2 (07:54→08:12)
[2025-03-10] MEDS ORDERED: Versed 2 MG/2 ML Injection ONE (07:54)
[2025-03-10] MEDS ORDERED: Xylocaine-Mpf 2% 5 Ml Vial ONE (07:54)
[2025-03-10] MEDS ORDERED: SUBLIMAZE 100 MCG/2 ML ONE (08:03)
[2025-03-10 09:08] VITALS: BP 97/74; PULSE 76; O2SAT 97
--- NOTE | 2025-03-11 12:56 | OP ---
SURGERY DATE/TIME: 03/10/2025 [id number] PREOPERATIVE DIAGNOSIS: Screening exam. POSTOPERATIVE DIAGNOSIS: Scattered sigmoid diverticula. Otherwise, normal colon. PROCEDURE: Colonoscopy. SURGEON: Asael Escobar MD ANESTHESIA: Medication given by anesthesia department. HISTORY: The patient is a 49-year-old white female presenting now for a screening colonoscopy. The patient was apprised of the risks of the procedure including risk of perforation, phlebitis, untoward reaction to medication, bleeding, and missed lesions. The patient verbalized her understanding and desired to have procedure performed. DESCRIPTION OF PROCEDURE AND FINDINGS: The patient was given medication by the anesthesia department. She had continuous pulse oximetry, ECG monitoring, and intermittent blood pressure monitoring during the examination. She was placed in left lateral decubitus position. Digital rectal examination was performed and revealed normal anal sphincter tone and no masses. The flexible Olympus colonoscope was used to intubate the rectum. A view of the colon was developed sequentially to the cecum. Upon insertion and withdrawal, including retroflexion of the rectum, there was noted a few scattered sigmoid diverticula, otherwise normal colon. The scope was removed. The patient tolerated the procedure well and sent back to outpatient recovery in good condition. The prep was noted to be fair with large amounts of liquid stool.
== END 2025-03-10 09:15 | disposition home or self-care (01) ==
LOC: SDC 06:04
PROVIDERS: ATTEND Family Medicine
DX: Z12.11 Encounter for screening for malignant neoplasm of colon (principal); K57.30 Diverticulosis of large intestine without perforation or abscess without bleeding; E11.9 Type 2 diabetes mellitus without complications
CPT/HCPCS: 36415; 82947; 84702; J2250; J2704; J3010